=== PATIENT | female | born 1980 | race Caucasian/White ===

== ENCOUNTER 2017-01-20 20:46 | Observation (INO) | payer OTHER ==
[2017-01-20] MEDS ORDERED: SODIUM CHLORIDE 0.9% 1,000 ML IV STA (22:38)
[2017-01-20] MEDS ORDERED: MAG HYDROX/AL HYDROX/SIMETH 30 ML, HYOSCYAMINE ELIXIR 10 ML, CIMETIDINE HCL 300 MG PO STA ×3 (22:58)
--- NOTE | 2017-01-20 23:00 | ED ---
Chest Pain HPI - General Chief Complaint: Chest Pain Stated Complaint: Chest Pain Time Seen by Provider: 01/20/17 22:38 Source: patient, RN notes reviewed, old records reviewed Mode of arrival: wheelchair Limitations: no limitations - History of Present Illness Initial Comments: This is a 36-year-old female with chief complaint of chest pain and arm pain for a few hours after eating dinner. Patient was inserted 7. She states that the pain is currently 5 out of 10. She reports it subsided since being in the emergency department. She denies any fever or chills. She denies any cough or other symptoms. She denies any shortness of breath nausea or vomiting or diaphoresis. Patient states she has a family history of heart disease. She is a nonsmoker. She states she has history of high cholesterol takes medication for. - Related Data Home Medications Medication Instructions Recorded Confirmed metFORMIN HCL 1,000 mg PO DAILY 03/03/14 01/21/17 Insuln Asp Prt/Insulin Aspart 40 unit SQ AC-SUPPER 03/04/14 01/21/17 [NovoLOG MIX 70-30 VIAL] Insuln Asp Prt/Insulin Aspart 80 unit SQ AC-BRKFST 03/04/14 01/21/17 [NovoLOG MIX 70-30 VIAL] Allergies Allergy/AdvReac Type Severity Reaction Status Date / Time aspirin Allergy Rash/Hives Verified 01/20/17 20:59 tramadol HCl [From Ultram] Allergy Unknown Verified 01/20/17 20:59 Review of Systems ROS Statement: Those systems with pertinent positive or pertinent negative responses have been documented in the HPI. ROS Other: All systems not noted in ROS Statement are negative. 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 Patient signed. Any acute distress. Limitations: no limitations General appearance: alert, in no apparent distress Head exam: Present: atraumatic, normocephalic, normal inspection Eye exam: Present: normal appearance, PERRL, EOMI. Absent: scleral icterus, conjunctival injection, periorbital swelling ENT exam: Present: normal exam, mucous membranes moist Neck exam: Present: normal inspection. Absent: tenderness, meningismus, lymphadenopathy Respiratory exam: Present: normal lung sounds bilaterally. Absent: respiratory distress, wheezes, rales, rhonchi, stridor Cardiovascular Exam: Present: regular rate, normal rhythm, normal heart sounds. Absent: systolic murmur, diastolic murmur, rubs, gallop, clicks GI/Abdominal exam: Present: soft, normal bowel sounds. Absent: distended, tenderness, guarding, rebound, rigid Extremities exam: Present: normal inspection, full ROM, normal capillary refill. Absent: tenderness, pedal edema, joint swelling, calf tenderness Back exam: Present: normal inspection Neurological exam: Present: alert, oriented X3, CN II-XII intact Psychiatric exam: Present: normal affect, normal mood Course Vital Signs 01/20/17 01/21/17 01/21/17 20:57 01:12 02:40 Temperature 98.4 F 98.0 F Pulse Rate 94 66 77 Respiratory 18 18 18 Rate Blood Pressure 119/71 114/66 96/54 O2 Sat by Pulse 98 97 99 Oximetry Chest Pain MDM - MDM 36-year-old female chief complaint of chest pain. Patient reports that while in the emergency department throughout her stay her chest pain is subsiding. All of her lab work was reviewed. She does have hypokalemia 2.8. Patient given 40 mg of K-Dur. Also started on IV potassium replacement. Patient will be admitted for observation and repeat her potassium in the morning. Patient agrees to admission. We'll also repeat cardiac enzymes. Patient's chest pain. She reports that she is currently in no pain at this time. Disposition Clinical Impression: Hypokalemia Disposition: ADMITTED IP TO THIS HOSP Condition: Good
[2017-01-20 23:35] LABS: Basophils # (A) 0.1 k/uL (0-0.2); Basophils % (A) 1 %; CH 30.2; CHCM 36.1; Eosinophils # (A) 0.4 k/uL (0-0.7); Eosinophils % (A) 4 %; HCT 41.2 % (34.0-46.0); HDW 2.88; HGB 14.7 gm/dL (11.4-16.0); Luc # (Auto) 0.17; Luc % (Auto) 2; Lymphocytes # (A) 4.1 k/uL (1.0-4.8); Lymphocytes % (A) 36 %; MCH 29.9 pg (25.0-35.0); MCHC 35.6 g/dL (31.0-37.0); MCV 84.1 fL (80.0-100.0); Mean Platelet Volume 8.1; Monocytes # (A) 0.8 k/uL (0-1.0); Monocytes % (A) 7 %; Neutrophils # (A) 5.8 k/uL (1.3-7.7); Neutrophils % (A) 51 %; RBC 4.89 m/uL (3.80-5.40); RDW 13.7 % (11.5-15.5); WBC 11.4 k/uL (3.8-10.6); WBC (Perox) 11.18
[2017-01-20 23:44] LABS: ALT 77 U/L (9-52); AST 33 U/L (14-36); Alkaline Phosphatase 66 U/L (38-126); Anion Gap 12 mmol/L; Blood Urea Nitrogen 10 mg/dL (7-17); Calcium 9.2 mg/dL (8.4-10.2); Carbon Dioxide 22 mmol/L (22-30); Chloride 107 mmol/L (98-107); Glucose 139 mg/dL (74-99); Magnesium 1.6 mg/dL (1.6-2.3); Non-African American GFR(MDRD) >60 (>60 ml/min/1.73 sqM); Sodium 141 mmol/L (137-145); Total Bilirubin 0.4 mg/dL (0.2-1.3); Total Protein 6.8 g/dL (6.3-8.2)
[2017-01-20 23:51] LABS: INR 1.1 (<1.1)
[2017-01-20 23:52] LABS: Partial Thromboplastin Time 24.9 sec (22.0-30.0)
[2017-01-20 23:54] LABS: Potassium 2.8 mmol/L (3.5-5.1)
[2017-01-20 23:58] LABS: Creatine Kinase 30 U/L (30-135)
[2017-01-21] MEDS ORDERED: POTASSIUM CHLORIDE ER 20 MEQ TAB.ER PO STA (00:09)
[2017-01-21 00:12] LABS: Creatine Kinase MB 0.2 ng/mL (0.0-2.4); Troponin I <0.012 ng/mL (0.000-0.034)
--- NOTE | 2017-01-21 00:14 | XR ---
EXAM: XR Chest, 2 Views CLINICAL HISTORY: Chest and left arm pain, dizziness, shortness of breath. TECHNIQUE: Frontal and lateral views of the chest. COMPARISON: 03/03/2014 FINDINGS: Lungs: Unremarkable. No consolidation. Pleural space: Unremarkable. No pneumothorax. Heart: Unremarkable. No cardiomegaly. Mediastinum: Unremarkable. Bones/joints: No acute osseous abnormality. IMPRESSION: No acute cardiopulmonary process.
[2017-01-21] MEDS ORDERED: ONDANSETRON 4 MG/2 ML VIAL IVP PRN (00:42)
[2017-01-21] MEDS ORDERED: NALOXONE 0.4 MG/ML 1 ML VIAL IV PRN (00:42)
[2017-01-21] MEDS ORDERED: IBUPROFEN 400 MG TAB PO PRN (00:42)
[2017-01-21] MEDS ORDERED: KETOROLAC 30 MG/ML 1 ML VIAL IVP PRN (00:42)
[2017-01-21] MEDS ORDERED: ACETAMINOPHEN TAB 325 MG TAB PO PRN (00:44)
[2017-01-21] MEDS ORDERED: MORPHINE SULFATE 4 MG/ML SYRINGE IVP PRN (00:45)
[2017-01-21] MEDS: POTASSIUM CHLORIDE 10 MEQ, LIDOCAINE 2% INJ 10 MG in SODIUM CHLORIDE 0.9% 100 ML IVPB SCH ×3 (01:08→05:18)
[2017-01-21] MEDS: SODIUM CHLORIDE 0.9% 1,000 ML IV SCH ×2 (02:44→10:25)
[2017-01-21 03:22] VITALS: BMI 25.2
[2017-01-21 06:49] LABS: Creatine Kinase 26 U/L (30-135)
[2017-01-21 07:02] LABS: Creatine Kinase MB <0.2 ng/mL (0.0-2.4); Troponin I <0.012 ng/mL (0.000-0.034)
[2017-01-21 07:02] LABS: Glucose,Whole Blood 185 mg/dL (75-99)
[2017-01-21 08:16] VITALS: RESP 16
[2017-01-21 08:23] LABS: Basophils # (A) 0.1 k/uL (0-0.2); Basophils % (A) 1 %; CH 29.9; CHCM 35.9; Eosinophils # (A) 0.3 k/uL (0-0.7); Eosinophils % (A) 4 %; HCT 37.4 % (34.0-46.0); HGB 13.2 gm/dL (11.4-16.0); Luc # (Auto) 0.13; Luc % (Auto) 2; Lymphocytes # (A) 3.2 k/uL (1.0-4.8); Lymphocytes % (A) 42 %; MCH 29.5 pg (25.0-35.0); MCHC 35.2 g/dL (31.0-37.0); MCV 83.7 fL (80.0-100.0); Mean Platelet Volume 8.6; Monocytes # (A) 0.6 k/uL (0-1.0); Monocytes % (A) 7 %; Neutrophils # (A) 3.5 k/uL (1.3-7.7); Neutrophils % (A) 45 %; RBC 4.47 m/uL (3.80-5.40); RDW 13.6 % (11.5-15.5); WBC 7.7 k/uL (3.8-10.6); WBC (Perox) 7.67
[2017-01-21 08:32] LABS: Anion Gap 8 mmol/L; Blood Urea Nitrogen 8 mg/dL (7-17); Calcium 8.4 mg/dL (8.4-10.2); Carbon Dioxide 21 mmol/L (22-30); Chloride 111 mmol/L (98-107); Glucose 199 mg/dL (74-99); Non-African American GFR(MDRD) >60 (>60 ml/min/1.73 sqM); Potassium 3.4 mmol/L (3.5-5.1); Sodium 140 mmol/L (137-145)
[2017-01-21] MEDS: POTASSIUM CHLORIDE ER 20 MEQ TAB.ER PO SCH ×2 (10:22→11:45)
[2017-01-21 11:07] LABS: Creatine Kinase 25 U/L (30-135)
[2017-01-21 11:20] LABS: Creatine Kinase MB <0.2 ng/mL (0.0-2.4); Troponin I <0.012 ng/mL (0.000-0.034)
[2017-01-21 12:03] LABS: Glucose,Whole Blood 207 mg/dL (75-99)
[2017-01-21 12:29] LABS: Hemoglobin A1C 8.2 % (4.2-6.1)
[2017-01-21] MEDS ORDERED: DIPHENOX-ATROP 2.5-0.025 MG 1 EACH TAB PO PRN (13:56)
[2017-01-21] MEDS ORDERED: HYDROcodone/APAP 5-325MG 1 EACH TAB PO PRN (13:56)
[2017-01-21] MEDS ORDERED: CYCLOBENZAPRINE 10 MG TAB PO PRN (13:56)
[2017-01-21] MEDS ORDERED: ALBUTEROL NEBULIZED 2.5 MG/3 ML INHALATION PRN (13:56)
[2017-01-21] MEDS ORDERED: PROCHLORPERAZINE 10 MG TAB PO PRN (13:56)
[2017-01-21] MEDS ORDERED: IBUPROFEN 800 MG TAB PO PRN (13:56)
[2017-01-21] MEDS ORDERED: LORazepam 1 MG TAB PO PRN (13:56)
[2017-01-21] MEDS ORDERED: FENOFIBRATE 160 MG TAB PO SCH (14:00)
[2017-01-21] MEDS ORDERED: ATORVASTATIN 80 MG TAB PO SCH (14:00)
[2017-01-21] MEDS ORDERED: LISINOPRIL 10 MG TAB PO SCH (14:00)
[2017-01-21 16:11] VITALS: BP 101/65; PULSE 86; TEMP 98
[2017-01-21] MEDS ORDERED: INSULN ASP PRT/INSULIN ASPART 100 UNIT/ML 10 ML VIAL SQ SCH (17:30)
--- NOTE | 2017-01-21 20:22 | HP ---
DATE OF ADMISSION: CHIEF COMPLAINT: Atypical chest pain. HISTORY OF PRESENT ILLNESS: This is another admission for this 36-year-old white female. She developed sharp left lateral chest pain and could not move her left arm. She had no diaphoresis, shortness of breath, nausea, etc. She has had no other symptoms of the left arm and there is no radiation into the neck, jaw or back. She is diabetic with poor control. Potassium in the emergency room is low at 2.8. REVIEW OF SYSTEMS: She has had no other complaints or problems. She recently has had trouble getting her diabetes back under good control and she has had some abdominal pain. She is also being treated for vulvar cancer through [facility]. REVIEW OF SYSTEMS: Otherwise unremarkable. She had no neurologic deficits, change in vision or hearing, cough, hemoptysis, fever, chills, shortness of breath, abdominal pain, vomiting, diarrhea, melena, kidney symptoms, hematuria, frequency, urgency, renal failure, etc. Past medical history, family history and personal and social histories are otherwise unremarkable and noncontributory. PHYSICAL EXAMINATION: VITAL SIGNS: Blood pressure 138/86 with a pulse of 83, respirations 20, and she is afebrile. In general, she well-developed, well-nourished and in no acute distress. She is completely comfortable at this time. Skin color is normal. Skin is warm and dry. Lymph nodes are not enlarged. Head, ears, eyes, nose, mouth, and throat were normal. Neck veins not distended. Thyroid was not enlarged. Chest is clear. Cardiac exam is normal. The abdomen is soft, nontender. Extremities are normal. Neurologically, she is intact. IMPRESSION: 1. Atypical chest and left arm pain. 2. Type 2 insulin dependent diabetes mellitus. 3. History of vulvar cancer. 4. Chronic obstructive pulmonary disease. 5. Hypokalemia. PLAN: 1. Bed rest. 2. IV fluids. 3. Serial EKGs and enzymes. 4. Correct hypokalemia.
--- NOTE | 2017-01-21 20:26 | DS ---
DATE OF ADMISSION: 01/21/2017 DATE OF DISCHARGE: 01/21/2017 CHIEF COMPLAINT: Atypical chest pain. HISTORY OF PRESENT ILLNESS AND PHYSICAL EXAMINATION: The details of this lady's history and physical can be found in the initial work-up. LABORATORY STUDIES: While she was hospital she had laboratory studies, the details of which can be found in the laboratory section of her chart. COURSE IN THE HOSPITAL: After admission, she was placed on bed rest, started on intravenous fluids and had serial EKGs and enzymes and they were normal. She had no further problems and it was felt that she could go home. She will follow up in the office. FINAL DIAGNOSES: 1. Atypical chest pain. 2. Type 2 diabetes. 3. Vulvar cancer. 4. Chronic obstructive pulmonary disease. OPERATIONS: None. CONSULTATIONS: None. She is improved.
[2017-01-21] MEDS ORDERED: AMITRIPTYLINE HCL 25 MG TAB PO SCH (21:00)
[2017-01-22] MEDS ORDERED: PANTOPRAZOLE 40 MG TABLET PO SCH (07:30)
[2017-01-22] MEDS ORDERED: INSULN ASP PRT/INSULIN ASPART 100 UNIT/ML 10 ML VIAL SQ SCH (07:30)
== END 2017-01-21 16:24 | disposition home or self-care (01) ==
LOC: EC 20:46 → 3OBS 01-21 02:02
PROVIDERS: ADMIT Family Medicine; ATTEND Family Medicine
DX: R07.89 Other chest pain (principal); M79.602 Pain in left arm; E11.65 Type 2 diabetes mellitus with hyperglycemia; C51.9 Malignant neoplasm of vulva, unspecified; J44.9 Chronic obstructive pulmonary disease, unspecified; E87.6 Hypokalemia; Z82.49 Family history of ischemic heart disease and other diseases of the circulatory system; Z79.84 Long term (current) use of oral hypoglycemic drugs; Z79.4 Long term (current) use of insulin; Z88.6 Allergy status to analgesic agent; Z88.5 Allergy status to narcotic agent; F17.200 Nicotine dependence, unspecified, uncomplicated
CPT/HCPCS: 96361; 96365; 99285; 36415; 93005; 85379; 83880; 80053; 80048; 83036; 82550 ×2; 82553 ×2; 83735; 84484 ×2; 85025 ×2; 85610; 85730; 71020; G0378; J2001; J3480; J1885

== ENCOUNTER → 2017-01-29 | Outpatient (CLI) | payer OTHER ==
[2017-01-29 11:00] LABS: Blood Urea Nitrogen 7 mg/dL (7-17); Non-African American GFR(MDRD) >60 (>60 ml/min/1.73 sqM)
--- NOTE | 2017-01-29 14:41 | CT ---
EXAMINATION TYPE: CT abdomen pelvis w con DATE OF EXAM: 01/29/2017 12:22 PM HISTORY: Patient complains of generalized abdominal pain, nausea, vomiting, and loss of appetite. Theron conrad has a history of vulva CA. CT DLP: 1385mGycm Automated Exposure Control for Dose Reduction was Utilized. CONTRAST: CT scan of the abdomen and pelvis is performed with IV Contrast, patient injected with 100 mL of Omni paque 300. COMPARISON: CT abdomen and pelvis July 31, 2015. Complete abdominal ultrasound June 06, 2016 . FINDINGS: LUNG BASES: Dependent atelectatic change is present bilaterally. LIVER/GB: Liver is diffusely low dense consistent with fatty infiltration as seen on prior abdominal ultrasound. PANCREAS: No significant abnormality is seen. SPLEEN: No significant abnormality is seen. ADRENALS: No significant abnormality is seen. KIDNEYS: There are a few simple appearing small cysts scattered throughout the right kidney. There is 2 cm renal calculus upper pole level left kidney on axial image 21 now identified. BOWEL: The oral contrast reaches level of sigmoid colon. There is no suspicious small or large bowel dilatation. Normal contrast-filled appendix is seen inferiorly from the cecum. UTERUS/ADNEXA: Uterus is surgically absent. Slightly heterogeneous cervical remnant is redemonstrated , correlation with direct visualization advised given patient's history of vaginal or vulvar cancer. Region of the labia is unremarkable. Remnant left ovary is somewhat prominent in size on axial image 69. Remnant right ovary is not identified. Consider pelvic ultrasound correlation. LYMPH NODES: No greater than 1cm abdominal or pelvic lymph nodes are appreciated. OSSEOUS STRUCTURES: Limbus vertebra anterior superior L4 endplate is noted. OTHER: There is mild mixed plaque in the abdominal aorta. Small fat-containing umbilical hernia is re demonstrated. IMPRESSION: No bowel obstruction is seen. No significant new or acute finding is seen to account for patient's clinical symptoms. Note is made of new 2 mm nonobstructing left-sided renal calculus. Atte ntion to uterus/adnexa section as detailed above.
== END | disposition home or self-care (01) ==
LOC: RADCTMAIN 10:30
PROVIDERS: ATTEND Family Medicine
DX: N20.0 Calculus of kidney (principal)
CPT/HCPCS: 82565; 84520; 74177; 36415; Q9967

== ENCOUNTER → 2017-01-30 | Outpatient (CLI) | payer OTHER ==
--- NOTE | 2017-01-30 13:02 | ECHOS ---
DATE OF SERVICE: 01/30/2017 AGE: 36Y SEX: F HT: 62 WT: 138 lbs. Protocol Javier: X Others: Stress Echo Stage: III Dur. of Exercise: 9 minutes *Heart Rate Blood Pressure *Rest: 82 Rest: 128/56 * *Max. Achieved: 153 Maximum BP: 150/69 85% PMHR: 157 100% PMHR: 185 *METS: 10.1 INDICATIONS: Chest pain. MEDICATIONS: Lasix, potassium, [place], Motrin, Cipro, NovoLog, metformin. Mrs. Osorio is a 36-year-old female being evaluated for symptoms of chest pain and shortness of breath. Baseline EKG showed sinus rhythm with normal TX interval and QRS duration. Blood pressure at rest is 128/56 with pulse rate of 82. Patient walked on the Javier protocol for 9 minutes, achieving a maximum heart rate of 153 with a blood pressure of 150/69. EKGs taken during and after the exercise did not reveal any changes to suggest ischemia. ECHO DATA: Baseline echo images show normal wall motion and thickening. Exercise echo images showed augmentation of the wall motion and thickening in all the segments. FINAL IMPRESSION: 1. Negative stress test. 2. Negative stress echo.
== END | disposition home or self-care (01) ==
LOC: RADNMMAIN 09:43
PROVIDERS: ATTEND Family Medicine
DX: R07.9 Chest pain, unspecified (principal); Z88.6 Allergy status to analgesic agent; Z91.048 Other nonmedicinal substance allergy status
CPT/HCPCS: 93017; 93350

== ENCOUNTER 2017-02-24 20:22 | Emergency (ER) | payer OTHER ==
[2017-02-24 20:26] VITALS: BP 122/71; PULSE 87; RESP 16; TEMP 97.4
[2017-02-24] MEDS ORDERED: DIAZEPAM 5 MG/ML 2 ML SYRINGE IM ONE (21:07)
--- NOTE | 2017-02-24 21:08 | ED ---
Extremity Problem HPI - General Chief complaint: Extremity Problem,Nontraumatic Stated complaint: Right arm numbness Time Seen by Provider: 02/24/17 20:52 Source: patient Mode of arrival: ambulatory Limitations: no limitations - History of Present Illness Initial comments: Patient is a 36-year-old male presenting to the emergency department with complaints of right hand numbness and cramping with occasional twitching. Onset of symptoms approximately one hour prior to arrival. Patient states she was waiting for dinner to get ready when symptoms started. Patient denies similar symptoms. Patient denies recent illness, fevers, nausea, vomiting, shortness of breath, chest pain, or abdominal pain. Onset/Timin -: hour(s) Location: right (Hand) History of Same: No Radiation: none Severity scale (1-10): 2 Quality: aching Consistency: constant Improves with: nothing Worsens with: nothing Associated Symptoms: denies other symptoms - Related Data Home Medications Medication Instructions Recorded Confirmed metFORMIN HCL 1,000 mg PO DAILY 03/03/14 01/21/17 Insuln Asp Prt/Insulin Aspart 40 unit SQ AC-SUPPER 03/04/14 01/21/17 [NovoLOG MIX 70-30 VIAL] Insuln Asp Prt/Insulin Aspart 80 unit SQ AC-BRKFST 03/04/14 01/21/17 [NovoLOG MIX 70-30 VIAL] Albuterol Inhaler [Ventolin Hfa 2 puff INHALATION RT-QID PRN 01/21/17 01/21/17 Inhaler] Amitriptyline HCl 25 mg PO HS 01/21/17 01/21/17 Atorvastatin [Lipitor] 80 mg PO DAILY 01/21/17 01/21/17 Benazepril [Lotensin] 10 mg PO DAILY 01/21/17 01/21/17 Cyclobenzaprine [Flexeril] 10 mg PO TID PRN 01/21/17 01/21/17 Diphenox-Atrop 2.5-0.025 mg 1 - 2 tab PO QID PRN 01/21/17 01/21/17 [Lomotil] Ergocalciferol [Vitamin D2] 50,000 unit PO TH 01/21/17 01/21/17 Fenofibrate 160 mg PO DAILY 01/21/17 01/21/17 HYDROcodone/APAP 5-325MG [[place] 1 tab PO Q4HR PRN 01/21/17 01/21/17 5-325] Ibuprofen [Motrin] 800 mg PO Q6HR PRN 01/21/17 01/21/17 LORazepam [Ativan] 1 mg PO TID PRN 01/21/17 01/21/17 Omeprazole [PriLOSEC] 20 mg PO DAILY 01/21/17 01/21/17 Prochlorperazine [Compazine] 10 mg PO Q6H PRN 01/21/17 01/21/17 Allergies Allergy/AdvReac Type Severity Reaction Status Date / Time aspirin Allergy Rash/Hives Verified 02/24/17 20:26 tramadol HCl [From Ultram] Allergy Unknown Verified 02/24/17 20:26 Mushroom AdvReac Vomiting Verified 02/24/17 20:26 Review of Systems ROS Statement: Those systems with pertinent positive or pertinent negative responses have been documented in the HPI. ROS Other: All systems not noted in ROS Statement are negative. 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 Absent: tenderness, lymphadenopathy Respiratory exam: Present: normal lung sounds bilaterally. Absent: respiratory distress, wheezes, rales, rhonchi, stridor Cardiovascular Exam: Present: regular rate, normal rhythm, normal heart sounds. Absent: systolic murmur, diastolic murmur, rubs, gallop, clicks GI/Abdominal exam: Present: soft, normal bowel sounds. Absent: distended, tenderness, guarding, rebound, rigid Right Forearm Wrist exam: Present: normal inspection, full ROM. Absent: tenderness, swelling Hand Wrist exam: Present: normal inspection, other (Patient is able to open and close right hand and move all fingers but some twitching is noted especially in right thumb.) Neuro motor exam: Present: wrist extension intact, thumb opposition intact, thumb IP flexion intact, thumb adduction intact, fingers 2-5 abduction intact Neurosensory exam: Present: 2-point discrimination, radial nerve intact, ulnar nerve intact, median nerve intact Vascular: Present: normal capillary refill, radial pulse, brachial pulse, ulnar pulse. Absent: vascular compromise Neurological exam: Present: alert, oriented X3, normal gait, other (No focal deficits noted.). Absent: motor sensory deficit Psychiatric exam: Present: normal affect, normal mood Skin exam: Present: warm, dry, intact, normal color Course Vital Signs 02/24/17 20:24 Temperature 97.4 F L Pulse Rate 87 Respiratory 16 Rate Blood Pressure 122/71 O2 Sat by Pulse 98 Oximetry Medical Decision Making - Medical Decision Making Muscle spasm of right hand. Patient given anti-spasmodic. Patient instructed to hydrate. Patient instructed to follow-up with primary care physician. Patient agrees with treatment plan. Discharge instructions and return parameters reviewed. Disposition Clinical Impression: Muscle spasm Disposition: HOME SELF-CARE Condition: Good Instructions: Muscle Spasm (ED) Additional Instructions: Encourage fluid intake to 6-8 glasses of water a day. Please return to the emergency department if symptoms do not improve or get worse. Follow-up with primary care physician as directed. Referrals: Manny Wallace MD [Primary Care Provider] - 1-2 days Time of Disposition: 21:08
[2017-02-24] MEDS: DIAZEPAM 2 MG TAB PO STA ×2 (21:16→21:17)
== END 2017-02-24 21:17 | disposition home or self-care (01) ==
LOC: EC 20:22
DX: M62.838 Other muscle spasm (principal); E11.9 Type 2 diabetes mellitus without complications; F17.200 Nicotine dependence, unspecified, uncomplicated; Z85.89 Personal history of malignant neoplasm of other organs and systems; Z79.4 Long term (current) use of insulin; Z79.899 Other long term (current) drug therapy; Z88.6 Allergy status to analgesic agent; Z91.048 Other nonmedicinal substance allergy status
CPT/HCPCS: 99283; 96372; J3360

== ENCOUNTER → 2017-03-06 | Outpatient (CLI) | payer OTHER ==
[2017-03-06 09:29] LABS: Blood Urea Nitrogen 9 mg/dL (7-17); Non-African American GFR(MDRD) >60 (>60 ml/min/1.73 sqM)
--- NOTE | 2017-03-06 09:40 | US ---
EXAMINATION TYPE: US carotid duplex BILAT DATE OF EXAM: 03/06/2017 COMPARISON: Previous study dated 01/28/2015 CLINICAL HISTORY: R55 syncope/R53.1 weakness. EXAM MEASUREMENTS: RIGHT: Peak Systolic Velocity (PSV) cm/sec ----- Right CCA: 95.4 ----- Right ICA: 91.6 ----- Right ECA: 62.2 ICA/CCA ratio: 1.0 RIGHT: End Diastole cm/sec ----- Right CCA: 35.8 ----- Right ICA: 47.5 ----- Right ECA: 12.7 LEFT: Peak Systolic Velocity (PSV) cm/sec ----- Left CCA: 96.0 ----- Left ICA: 99.3 ----- Left ECA: 110.3 ICA/CCA ratio: 1.0 LEFT: End Diastole cm/sec ----- Left CCA: 36.5 ----- Left ICA: 51.9 ----- Left ECA: 27.5 VERTEBRALS (direction of flow): Right Vertebral: Antegrade Left Vertebral: Antegrade 36 year old patient, no evident plaque, no elevated velocities. IMPRESSION: I DO NOT SEE EVIDENCE OF A HEMODYNAMICALLY SIGNIFICANT STENOSIS IN EITHER CAROTID SYSTEM. Criteria for Assigning % of Stenosis / Diameter reduction (Estimation based on the indirect measurements of the internal carotid artery velocities (ICA PSV). 1. Normal (no stenosis)=ICA PSV < 125 cm/s: ratio < 2.0: ICA EDV<40 cm/s. 2. Less than 50% stenosis=ICA PSV < 125 cm/s: ratio < 2.0: ICA EDV<40 cm/s. 3. 50 to 69% stenosis=ICA PSV of 125 to 230 cm/s: ration 2.0 ? 4.0: ICA EDV 40-100 cm/s. 4. Greater than 70% stenosis to near occlusion= ICA PSV > 230 cm/s: ratio > 4.0: ICA EDV > 100 cm/s. 5. Near occlusion= ICA PSV velocities may be low or undetectable: variable ratio and ICA EDV. 6. Total occlusion=unable to detect flow.
--- NOTE | 2017-03-06 10:15 | CT ---
EXAMINATION TYPE: CT brain wo/w con DATE OF EXAM: 03/06/2017 COMPARISON: Previous study dated 01/28/2015. HISTORY: Weakness and Syncope CT DLP: 2035.8 mGycm Automated exposure control for dose reduction was used. TECHNIQUE: Helical acquisition through the brain was obtained with and without intravenous administra tion of 100 cc of Omnipaque 300. The data was reformatted in axial, coronal and sagittal projections. FINDINGS: Central structures are midline. There is no evidence of hydrocephalus. No acute focal lesion, mass ef fect or midline shift is seen. I do not see evidence of intracranial blood. The orbits are normal. Following intravenous administration of contrast, I do not see evidence of abnormal enhancement. Visualized portions of the paranasal sinuses and mastoids are clear. IMPRESSION: NORMAL CT SCAN OF THE BRAIN WITH AND WITHOUT INTRAVENOUS CONTRAST.
== END | disposition home or self-care (01) ==
LOC: RADUSMAIN 08:50
PROVIDERS: ATTEND Family Medicine
DX: R53.1 Weakness (principal); R55 Syncope and collapse
CPT/HCPCS: 93225; 93226; 82565; 84520; 93880; 70470; 36415; Q9967

== ENCOUNTER 2017-04-18 15:18 | Inpatient (IN) | payer OTHER ==
[2017-04-18] MEDS ORDERED: PIPERACILLIN-TAZOBACTAM 3.375 GM in DEXTROSE/WATER 1 50ML.BAG IVPB STA (15:41)
[2017-04-18] MEDS ORDERED: SODIUM CHLORIDE 0.9% 1,000 ML IV STA ×2 (15:41)
[2017-04-18] MEDS ORDERED: ACETAMINOPHEN TAB 500 MG TAB PO STA (15:41)
--- NOTE | 2017-04-18 16:33 | XR ---
EXAMINATION TYPE: XR chest 2V DATE OF EXAM: 04/18/2017 COMPARISON: 01/20/2017 HISTORY: Fever TECHNIQUE: Frontal and lateral views of the chest are obtained. FINDINGS: Heart and mediastinum are normal. Lungs are clear. Diaphragm is normal. Bony thorax appear s normal. IMPRESSION: Normal chest. No change.
[2017-04-18 16:48] LABS: Basophils # (A) 0.1 k/uL (0-0.2); Basophils % (A) 0 %; CH 30.9; CHCM 36.3; Eosinophils # (A) 0.1 k/uL (0-0.7); Eosinophils % (A) 1 %; HCT 40.6 % (34.0-46.0); HDW 2.79; HGB 14.2 gm/dL (11.4-16.0); Luc # (Auto) 0.14; Luc % (Auto) 1; Lymphocytes # (A) 1.7 k/uL (1.0-4.8); Lymphocytes % (A) 9 %; MCH 29.9 pg (25.0-35.0); MCHC 34.9 g/dL (31.0-37.0); MCV 85.5 fL (80.0-100.0); Mean Platelet Volume 8.6; Monocytes # (A) 1.2 k/uL (0-1.0); Monocytes % (A) 6 %; Neutrophils # (A) 16.4 k/uL (1.3-7.7); Neutrophils % (A) 84 %; RBC 4.75 m/uL (3.80-5.40); RDW 14.3 % (11.5-15.5); WBC 19.6 k/uL (3.8-10.6); WBC (Perox) 19.92
[2017-04-18 16:53] LABS: Appearance,Urine Clear (Clear); Bacteria,Urine Few /hpf; Bilirubin,Urine Negative (Negative); Glucose,Urine (UA) Negative (Negative); Ketones,Urine Negative (Negative); Leukocyte Esterase,Urine Moderate (Negative); Mucus,Urine Rare /hpf; Nitrite,Urine Negative (Negative); Particle Count 2753; Protein,Urine Trace (Negative); RBC,Urine 1 /hpf (0-5); Specific Gravity,Urine 1.006 (1.001-1.035); Squamous Epithelial Cell,Urine 2 /hpf (0-4); UA Billing (MACRO vs. MICRO) MICRO; Urobilinogen,Urine <2.0 mg/dL (<2.0); WBC,Urine 33 /hpf (0-5)
[2017-04-18 17:05] LABS: ALT 20 U/L (9-52); AST 16 U/L (14-36); Alkaline Phosphatase 56 U/L (38-126); Anion Gap 13 mmol/L; Blood Urea Nitrogen 7 mg/dL (7-17); Calcium 9.6 mg/dL (8.4-10.2); Carbon Dioxide 19 mmol/L (22-30); Chloride 107 mmol/L (98-107); Glucose 153 mg/dL (74-99); Non-African American GFR(MDRD) >60 (>60 ml/min/1.73 sqM); Sodium 139 mmol/L (137-145); Total Bilirubin 0.7 mg/dL (0.2-1.3); Total Protein 6.9 g/dL (6.3-8.2)
[2017-04-18 17:10] LABS: Potassium 2.7 mmol/L (3.5-5.1)
[2017-04-18] MEDS ORDERED: RX INFO: IV CONTRAST WAS GIVEN 1 EACH MISC MISCELLANE PRN (17:22)
--- NOTE | 2017-04-18 17:29 | ED ---
Fever HPI - General Chief Complaint: Fever Stated Complaint: Back Pain Time Seen by Provider: 04/18/17 15:31 Source: patient Mode of arrival: ambulatory Limitations: no limitations - History of Present Illness Initial Comments: 36 years old female presents with high fever she had a fever off one or 2.3 at home, she was fine until 9 AM today at 9 AM she felt that she is kind of ", she has a high fever or lower back pain and also complaining about the pain she also has a UTI-like symptoms she noticed frequency urgency dysuria she denies any headache no neck stiffness no chest pain she has not been coughing does complain about abdominal pain and flank pain bilaterally and she has a UTI like symptoms. Review of system is otherwise unremarkable - Related Data Home Medications Medication Instructions Recorded Confirmed Albuterol Inhaler [Ventolin Hfa 2 puff INHALATION RT-QID PRN 01/21/17 04/18/17 Inhaler] Atorvastatin [Lipitor] 80 mg PO DAILY 01/21/17 04/18/17 Benazepril [Lotensin] 10 mg PO DAILY 01/21/17 04/18/17 Cyclobenzaprine [Flexeril] 10 mg PO TID PRN 01/21/17 04/18/17 Diphenox-Atrop 2.5-0.025 mg 1 tab PO QID PRN 01/21/17 04/18/17 [Lomotil] Ergocalciferol [Vitamin D2] 50,000 unit PO Q28D 01/21/17 04/18/17 Fenofibrate 160 mg PO DAILY 01/21/17 04/18/17 HYDROcodone/APAP 5-325MG [[place] 1 tab PO BID PRN 01/21/17 04/18/17 5-325] LORazepam [Ativan] 1 mg PO TID PRN 01/21/17 04/18/17 Omeprazole [PriLOSEC] 20 mg PO DAILY PRN 01/21/17 04/18/17 Ezetimibe [Zetia] 10 mg PO DAILY 04/18/17 04/18/17 Furosemide [Lasix] 10 mg PO DAILY 04/18/17 04/18/17 Insulin Aspart [NovoLOG Flexpen] See Protocol SQ AC-TID 04/18/17 04/18/17 Potassium Chloride ER [K-Dur 20] 20 meq PO QID 04/18/17 04/18/17 Tamoxifen Citrate 20 mg PO DAILY 04/18/17 04/18/17 Allergies Allergy/AdvReac Type Severity Reaction Status Date / Time aspirin Allergy Rash/Hives Verified 02/24/17 20:26 Mushroom AdvReac Vomiting Verified 02/24/17 20:26 tramadol HCl [From Ultram] AdvReac Nausea & Verified 04/18/17 16:19 Vomiting Review of Systems ROS Statement: Those systems with pertinent positive or pertinent negative responses have been documented in the HPI. ROS Other: All systems not noted in ROS Statement are negative. 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 Looks tired and pale Skin: Skin is warm and dry and no rashes or lesions are noted. Eye: Pupils are equal, round and reactive to light, extra-ocular movements are intact; there is normal conjunctiva bilaterally. Ears, nose, mouth and throat: There are moist mucous membranes and no oral lesions. Neck: The neck is supple, there is no tenderness signs of meningitis Cardiovascular: There is a regular rate and rhythm. No murmur, rub or gallop is appreciated. Some tachycardia Respiratory: To auscultation bilateral, no wheezing no rhonchi no distress respiratory stewart noticed Gastrointestinal: Mildly diffusely tender all over the abdomen positive bowel sounds no guarding no rebounds Back: There is tenderness over the both flanks Musculoskeletal: Normal ROM, no tenderness, There is no pedal edema. There is no calf tenderness or swelling. No cords were appreciated. Neurological: CN II-XII intact, Cranial nerves III through XII are intact. There are no obvious motor or sensory deficits. Coordination appears grossly intact. Speech is normal. Psychiatric: Cooperative, appropriate mood & affect, normal judgment. Limitations: no limitations Course Vital Signs 04/18/17 04/18/17 04/18/17 15:25 16:25 16:48 Temperature 101.8 F H 100.0 F H Pulse Rate 120 H 113 H Respiratory 20 22 20 Rate Blood Pressure 134/78 119/71 O2 Sat by Pulse 99 99 Oximetry 04/18/17 04/18/17 04/18/17 16:58 17:36 18:59 Temperature 101.7 F H 100.9 F H 99 F Pulse Rate 116 H 104 H Respiratory 22 22 Rate Blood Pressure 119/71 101/62 O2 Sat by Pulse 96 97 Oximetry Medical Decision Making - Lab Data Result diagrams: 04/18/17 16:11 04/18/17 16:11 Lab Results 04/18/17 04/18/17 04/18/17 Range/Units 16:11 16:11 16:11 WBC 19.6 H (3.8-10.6) k/uL RBC 4.75 (3.80-5.40) m/uL Hgb 14.2 (11.4-16.0) gm/dL Hct 40.6 (34.0-46.0) % MCV 85.5 (80.0-100.0) fL MCH 29.9 (25.0-35.0) pg MCHC 34.9 (31.0-37.0) g/dL RDW 14.3 (11.5-15.5) % Plt Count 260 (150-450) k/uL Neutrophils % 84 % Lymphocytes % 9 % Monocytes % 6 % Eosinophils % 1 % Basophils % 0 % Neutrophils # 16.4 H (1.3-7.7) k/uL Lymphocytes # 1.7 (1.0-4.8) k/uL Monocytes # 1.2 H (0-1.0) k/uL Eosinophils # 0.1 (0-0.7) k/uL Basophils # 0.1 (0-0.2) k/uL Sodium 139 (137-145) mmol/L Potassium 2.7 L* (3.5-5.1) mmol/L Chloride 107 (98-107) mmol/L Carbon Dioxide 19 L (22-30) mmol/L Anion Gap 13 mmol/L BUN 7 (7-17) mg/dL Creatinine 0.55 (0.52-1.04) mg/dL Est GFR (MDRD) Af Amer >60 (>60 ml/min/1.73 sqM) Est GFR (MDRD) Non-Af >60 (>60 ml/min/1.73 sqM) Glucose 153 H (74-99) mg/dL Plasma Lactic Acid [place] 1.4 (0.7-2.0) mmol/L Calcium 9.6 (8.4-10.2) mg/dL Total Bilirubin 0.7 (0.2-1.3) mg/dL AST 16 (14-36) U/L ALT 20 (9-52) U/L Alkaline Phosphatase 56 (38-126) U/L Total Protein 6.9 (6.3-8.2) g/dL Albumin 4.2 (3.5-5.0) g/dL Urine Color Urine Appearance (Clear) Urine pH (5.0-8.0) Ur Specific [place] (1.001-1.035) Urine Protein (Negative) Urine Glucose (UA) (Negative) Urine Ketones (Negative) Urine Blood (Negative) Urine Nitrite (Negative) Urine Bilirubin (Negative) Urine Urobilinogen (<2.0) mg/dL Ur Leukocyte Esterase (Negative) Urine RBC (0-5) /hpf Urine WBC (0-5) /hpf Ur Squamous Epith Cells (0-4) /hpf Urine Bacteria (None) /hpf Urine Mucus (None) /hpf 04/18/17 Range/Units 16:11 WBC (3.8-10.6) k/uL RBC (3.80-5.40) m/uL Hgb (11.4-16.0) gm/dL Hct (34.0-46.0) % MCV (80.0-100.0) fL MCH (25.0-35.0) pg MCHC (31.0-37.0) g/dL RDW (11.5-15.5) % Plt Count (150-450) k/uL Neutrophils % % Lymphocytes % % Monocytes % % Eosinophils % % Basophils % % Neutrophils # (1.3-7.7) k/uL Lymphocytes # (1.0-4.8) k/uL Monocytes # (0-1.0) k/uL Eosinophils # (0-0.7) k/uL Basophils # (0-0.2) k/uL Sodium (137-145) mmol/L Potassium (3.5-5.1) mmol/L Chloride (98-107) mmol/L Carbon Dioxide (22-30) mmol/L Anion Gap mmol/L BUN (7-17) mg/dL Creatinine (0.52-1.04) mg/dL Est GFR (MDRD) Af Amer (>60 ml/min/1.73 sqM) Est GFR (MDRD) Non-Af (>60 ml/min/1.73 sqM) Glucose (74-99) mg/dL Plasma Lactic Acid [place] (0.7-2.0) mmol/L Calcium (8.4-10.2) mg/dL Total Bilirubin (0.2-1.3) mg/dL AST (14-36) U/L ALT (9-52) U/L Alkaline Phosphatase (38-126) U/L Total Protein (6.3-8.2) g/dL Albumin (3.5-5.0) g/dL Urine Color Light Yellow Urine Appearance Clear (Clear) Urine pH 7.0 (5.0-8.0) Ur Specific [place] 1.006 (1.001-1.035) Urine Protein Trace H (Negative) Urine Glucose (UA) Negative (Negative) Urine Ketones Negative (Negative) Urine Blood Negative (Negative) Urine Nitrite Negative (Negative) Urine Bilirubin Negative (Negative) Urine Urobilinogen <2.0 (<2.0) mg/dL Ur Leukocyte Esterase Moderate H (Negative) Urine RBC 1 (0-5) /hpf Urine WBC 33 H (0-5) /hpf Ur Squamous Epith Cells 2 (0-4) /hpf Urine Bacteria Few H (None) /hpf Urine Mucus Rare H (None) /hpf Critical Care Time Total Critical Care Time: 30 Critical Care Time: She came in now with a high fever and tachycardia and abdominal pain and the flank pain temp was 102 white count is 20,000 with a significant left shift urine is positive she also has a low potassium was 2.9 and she is she has a metabolic acidosis CO2 is 19 my did speak to the Dr. Wallace she will definitely need admission she had aggressive fluid resuscitation and antibiotics were given she was given Zosyn. Hyperkalemia was flexed and fluids will help with the metabolic acidosis suprapubic abdominal pain is concerned and she has a history of for cancer. All systems are decreased in the pelvis and she is tender Disposition Clinical Impression: Fever, Hypokalemia, Metabolic acidosis, Abdominal pain, Pyelonephritis Disposition: ADMITTED IP TO THIS HOSP Condition: Good Referrals: Manny Wallace MD [Primary Care Provider] - 1-2 days
[2017-04-18] MEDS ORDERED: POTASSIUM CHLORIDE ORAL LIQUID 40 MEQ/30 ML CUP PO ONE ×2 (17:30→22:37)
[2017-04-18] MEDS ORDERED: IBUPROFEN 200 MG TAB PO STA (17:43)
--- NOTE | 2017-04-18 18:14 | CT ---
EXAMINATION TYPE: CT abdomen pelvis w con DATE OF EXAM: 04/18/2017 COMPARISON: 01/29/2017 HISTORY: LOWER BACK PAIN AND FEVER. CT DLP: 1106 mGycm Automated exposure control for dose reduction was used. TECHNIQUE: Helical acquisition of images was performed from the lung bases through the pelvis. CONTRAST: Performed without Oral Contrast and with IV Contrast, patient injected with 100 mL of Omnipaque 300. FINDINGS: There is mild subsegmental atelectasis at the lung bases. There is no pleural effusion. Heart size is normal. Liver spleen pancreas gallbladder appear normal. Bile ducts are nondilated. There is no adrenal mass. There are 1 cm cortical cysts in the right kidney. There is inhomogeneous enhancement of the lateral cortex of the left kidney. There is suggestion of v andrew minimal left-sided perinephric edema. There is no retroperitoneal adenopathy there is no ascites. Appendix appears normal. Bladder distends smoothly. I see no pelvic mass. There is a 1 cm cyst on the left ovary. The bony structures appear n ormal.: IMPRESSION: THERE IS ABNORMAL BULGING AND ENHANCEMENT OF THE LATERAL LEFT KIDNEY CONSISTENT WITH ACUTE PYELONEPHR ITIS THAT IS NEW COMPARED TO OLD EXAM. MILD LEFT-SIDED PERINEPHRIC EDEMA. NO EVIDENCE OF RENAL OBSTRU CTION. NO ABSCESS. NORMAL APPENDIX. MINIMAL SUBSEGMENTAL ATELECTASIS AT THE LUNG BASES.
[2017-04-18] MEDS ORDERED: NALOXONE 0.4 MG/ML 1 ML VIAL IV PRN (19:14)
[2017-04-18] MEDS ORDERED: ONDANSETRON 4 MG/2 ML VIAL IVP PRN (19:14)
[2017-04-18] MEDS ORDERED: MORPHINE SULFATE 4 MG/ML SYRINGE IV PRN (19:14)
[2017-04-18] MEDS ORDERED: CYCLOBENZAPRINE 10 MG TAB PO PRN (19:21)
[2017-04-18] MEDS ORDERED: ALBUTEROL NEBULIZED 2.5 MG/3 ML INHALATION PRN (19:21)
[2017-04-18] MEDS ORDERED: DIPHENOX-ATROP 2.5-0.025 MG 1 EACH TAB PO PRN (19:21)
[2017-04-18] MEDS ORDERED: LORazepam 1 MG TAB PO PRN (19:21)
[2017-04-18] MEDS ORDERED: PANTOPRAZOLE 40 MG TABLET PO PRN (19:21)
[2017-04-18] MEDS: HYDROcodone/APAP 5-325MG 1 EACH TAB PO PRN (20:54)
[2017-04-18] MEDS: FENOFIBRATE 160 MG TAB PO SCH (20:54)
[2017-04-18 21:40] LABS: Glucose,Whole Blood 125 mg/dL (75-99)
[2017-04-18] MEDS ORDERED: POTASSIUM CHLORIDE ER 20 MEQ TAB.ER PO SCH (22:00)
[2017-04-19] MEDS ORDERED: POTASSIUM CHLORIDE ORAL LIQUID 40 MEQ/30 ML CUP PO ONE (00:19)
[2017-04-19] MEDS: ACETAMINOPHEN TAB 325 MG TAB PO PRN ×3 (03:17→21:05)
[2017-04-19 07:28] LABS: Glucose,Whole Blood 235 mg/dL (75-99)
[2017-04-19] MEDS: FUROSEMIDE 10 MG TAB PO SCH (07:41)
[2017-04-19] MEDS: LISINOPRIL 10 MG TAB PO SCH (07:41)
[2017-04-19] MEDS: cefTRIAXone 2,000 MG in SODIUM CHLORIDE 0.9% 100 ML IVPB SCH (07:41)
[2017-04-19] MEDS: INSULN ASP PRT/INSULIN ASPART 100 UNIT/ML 10 ML VIAL SQ SCH ×2 (07:41→17:42)
[2017-04-19] MEDS: EZETIMIBE 10 MG TAB PO SCH (07:41)
[2017-04-19] MEDS: POTASSIUM CHLORIDE ORAL LIQUID 40 MEQ/30 ML CUP PO SCH ×4 (07:41→21:01)
[2017-04-19] MEDS: HYDROcodone/APAP 5-325MG 1 EACH TAB PO PRN (07:41)
[2017-04-19] MEDS: ATORVASTATIN 80 MG TAB PO SCH (07:41)
[2017-04-19] MEDS: TAMOXIFEN 10 MG TAB PO SCH (08:29)
[2017-04-19 08:52] LABS: Basophils # (A) 0.1 k/uL (0-0.2); Basophils % (A) 0 %; CH 29.8; CHCM 34.7; Eosinophils # (A) 0.1 k/uL (0-0.7); Eosinophils % (A) 0 %; HCT 38.2 % (34.0-46.0); HGB 13.2 gm/dL (11.4-16.0); Luc # (Auto) 0.16; Luc % (Auto) 1; Lymphocytes # (A) 1.2 k/uL (1.0-4.8); Lymphocytes % (A) 6 %; MCH 29.9 pg (25.0-35.0); MCHC 34.7 g/dL (31.0-37.0); MCV 86.1 fL (80.0-100.0); Mean Platelet Volume 8.1; Monocytes # (A) 1.5 k/uL (0-1.0); Monocytes % (A) 7 %; Neutrophils # (A) 18.5 k/uL (1.3-7.7); Neutrophils % (A) 86 %; RBC 4.43 m/uL (3.80-5.40); RDW 13.2 % (11.5-15.5); WBC 21.4 k/uL (3.8-10.6); WBC (Perox) 21.52
[2017-04-19] MEDS ORDERED: FENOFIBRATE 160 MG TAB PO SCH (09:00)
[2017-04-19 09:29] LABS: ALT 24 U/L (9-52); AST 12 U/L (14-36); Alkaline Phosphatase 58 U/L (38-126); Anion Gap 9 mmol/L; Blood Urea Nitrogen 5 mg/dL (7-17); Calcium 8.9 mg/dL (8.4-10.2); Carbon Dioxide 20 mmol/L (22-30); Chloride 111 mmol/L (98-107); Glucose 177 mg/dL (74-99); Non-African American GFR(MDRD) >60 (>60 ml/min/1.73 sqM); Sodium 140 mmol/L (137-145); Total Bilirubin 0.5 mg/dL (0.2-1.3); Total Protein 5.8 g/dL (6.3-8.2)
[2017-04-19] MEDS: HYDROmorphone 1 MG/ML 1 ML SYRINGE IVP PRN ×3 (11:24→21:00)
[2017-04-19 12:15] LABS: Glucose,Whole Blood 70 mg/dL (75-99)
--- NOTE | 2017-04-19 15:37 | HP ---
CHIEF COMPLAINT: Left lower quadrant abdominal pain, left back pain and temperature 102. HISTORY OF PRESENT ILLNESS: This is another admission for this 36-year-old white female, insulin dependent diabetic. She also has a history of vulvar cancer which was treated in [place] and has not recurred. On the day of admission she got up and started to have pain in the left low back area and then in the left lower quadrant. It grew worse and she developed a fever and chills and came to the emergency room. She was admitted with pain and possible sepsis. She denies any urinary complaints. REVIEW OF SYSTEMS: She has had no headaches, confusion, chest pain, cough, shortness of breath, hemoptysis, murmurs, rheumatic fever, nausea, vomiting, hematemesis, melena, urinary complaints, renal failure, etc. PAST MEDICAL HISTORY, FAMILY AND PERSONAL/SOCIAL HISTORY: Reveals she is allergic to TAPE and ASPIRIN. She has been on Zetia 10 mg a day, Lasix 20 mg 1/ 2 a day, Symbicort 160/4.5 one puff twice a day, KCL 20 mEq once a day, Lomotil p.r.n., Compaziine p.r.n., vitamin D, Topamax 50 mg once a day, Fioricet one q4 p.r.n., Tamoxifen 20 mg once a day, Prilosec 20 mg once a day, Zofran p.r.n., ProAir HFA two puffs q.i.d. p.r.n., Vicodin 5/325 twice a day p.r.n., Ativan 1 mg three times a day p.r.n., fenofibrate 160 once a day, Novalog mix 70/30, 100 units in the morning and 50 at night; Flexeril 10 mg t.i.d. p.r.n., Lipitor 80 h.s., ibuprofen 800 mg q.i.d. p.r.n., amitriptyline 25 mg once a day at bedtime , Trazodone 100 mg once a day at night, Benazepril 10 mg once a day, metformin 1 gm twice a day. She used to smoke and still does occasionally. Her blood sugars have been under fairly good control. PHYSICAL EXAM: Blood pressure 116/80, pulse 90, respirations 34 and temperature 102. GENERAL: She appeared to be uncomfortable and chronically ill in appearance. HEENT: Normal. Neck veins not distended. Thyroid is enlarged. CHEST: Clear. CARDIAC: Demonstrates sinus tachycardia. ABDOMEN: Tender in the left upper and particularly in the left lower quadrant. There are no masses. There is no rebound. She is also slightly tender in the left flank. EXTREMITIES: Normal. NEUROLOGIC: Intact. ASSESSMENT; 1. Left low back pain and left side abdominal pain with fever. 2. Rule out genitourinary etiology or diverticulitis. 3. Insulin dependent diabetes mellitus. 4. History of cancer of the vulva. PLAN: 1. Bedrest. 2. IV fluids. 3. Appropriate cultures. 4. Consult infectious disease, general surgery and gynecology. GENOVEVA
--- NOTE | 2017-04-19 15:40 | PN ---
DATE OF SERVICE: 04/19/2017 CHIEF COMPLAINT: Left low back and left lower quadrant pain. HISTORY OF PRESENT ILLNESS: This lady is still having quite a bit of discomfort in the abdomen. Flanks are nontender. PHYSICAL EXAM: CHEST: Clear. CARDIAC: Normal. ABDOMEN: She is still very tender in the left lower quadrant. IMPRESSION: 1. Pyelonephritis? 2. Diverticulitis? PLAN: Continue with IV fluids and IV antibiotics and await for evaluation by infectious disease, surgery and gynecology. GENOVEVA
[2017-04-19 17:48] LABS: Glucose,Whole Blood 211 mg/dL (75-99)
--- NOTE | 2017-04-19 18:36 | P.GSCN ---
History of Present Illness Consult date: 04/19/17 Reason for Consult: Abdominal pain History of present illness: Patient hospitalized with a several-day history of increasing pain in the left flank and left lower back. Today the pain has moved around to the left midabdomen as well. No dysuria or hematuria. She is having fevers at home of 102. In the hospital her white blood cell count is elevated. She is again having high fevers. She says she does not feel much better thus far. A CAT scan was performed which shows some inflammatory changes around the left kidney consistent with pyelonephritis. Urinalysis does show some bacteria and leukocyte esterase. Patient is diabetic. No prior history of urinary tract infections. No change in bowel habits. Patient is nausea but no vomiting. 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 Past Anesthesia/Blood Transfusion Reactions: No Reported Reaction Past Psychological History: No Psychological Hx Reported, Anxiety, Depression Smoking Status: Current every day smoker Past Alcohol Use History: Occasional Past Drug Use History: None Reported - Past Family History Mother Additional Family Medical History / Comment(s): uterine CA, Father Family Medical History: Diabetes Mellitus Additional Family Medical History / Comment(s): heart disease Medications and Allergies Home Medications Medication Instructions Recorded Confirmed Type Albuterol Inhaler [Ventolin Hfa 2 puff INHALATION RT-QID PRN 01/21/17 04/18/17 History Inhaler] Atorvastatin [Lipitor] 80 mg PO DAILY 01/21/17 04/18/17 History Benazepril [Lotensin] 10 mg PO DAILY 01/21/17 04/18/17 History Cyclobenzaprine [Flexeril] 10 mg PO TID PRN 01/21/17 04/18/17 History Diphenox-Atrop 2.5-0.025 mg 1 tab PO QID PRN 01/21/17 04/18/17 History [Lomotil] Ergocalciferol [Vitamin D2] 50,000 unit PO Q28D 01/21/17 04/18/17 History Fenofibrate 160 mg PO DAILY 01/21/17 04/18/17 History HYDROcodone/APAP 5-325MG [[place] 1 tab PO BID PRN 01/21/17 04/18/17 History 5-325] LORazepam [Ativan] 1 mg PO TID PRN 01/21/17 04/18/17 History Omeprazole [PriLOSEC] 20 mg PO DAILY PRN 01/21/17 04/18/17 History Ezetimibe [Zetia] 10 mg PO DAILY 04/18/17 04/18/17 History Furosemide [Lasix] 10 mg PO DAILY 04/18/17 04/18/17 History Insulin Aspart [NovoLOG Flexpen] See Protocol SQ AC-TID 04/18/17 04/18/17 History Potassium Chloride ER [K-Dur 20] 20 meq PO QID 04/18/17 04/18/17 History Tamoxifen Citrate 20 mg PO DAILY 04/18/17 04/18/17 History Allergies Allergy/AdvReac Type Severity Reaction Status Date / Time aspirin Allergy Rash/Hives Verified 02/24/17 20:26 Mushroom AdvReac Vomiting Verified 02/24/17 20:26 tramadol HCl [From Ultram] AdvReac Nausea & Verified 04/18/17 16:19 Vomiting Surgical - Exam Vital Signs Temp Pulse Resp BP Pulse Ox 101.8 F H 120 H 20 134/78 99 04/18/17 15:25 04/18/17 15:25 04/18/17 15:25 04/18/17 15:25 04/18/17 15:25 Physical exam: General: Well-developed, well-nourished HEENT: Normocephalic, sclerae nonicteric Abdomen: Left flank tenderness, mild left upper quadrant tenderness, nondistended Extremities: No edema Neuro: Alert and oriented Results - Labs 04/19/17 07:54 04/19/17 07:54 Abnormal Lab Results - Last 24 Hours (Table) 04/18/17 04/19/17 04/19/17 Range/Units 21:13 06:55 07:54 WBC 21.4 H (3.8-10.6) k/uL Neutrophils # 18.5 H (1.3-7.7) k/uL Monocytes # 1.5 H (0-1.0) k/uL Potassium (3.5-5.1) mmol/L Chloride (98-107) mmol/L Carbon Dioxide (22-30) mmol/L BUN (7-17) mg/dL Glucose (74-99) mg/dL POC Glucose (mg/dL) 125 H 235 H (75-99) mg/dL AST (14-36) U/L Total Protein (6.3-8.2) g/dL Albumin (3.5-5.0) g/dL 04/19/17 04/19/17 04/19/17 Range/Units 07:54 12:13 17:26 WBC (3.8-10.6) k/uL Neutrophils # (1.3-7.7) k/uL Monocytes # (0-1.0) k/uL Potassium 3.0 L* (3.5-5.1) mmol/L Chloride 111 H (98-107) mmol/L Carbon Dioxide 20 L (22-30) mmol/L BUN 5 L (7-17) mg/dL Glucose 177 H (74-99) mg/dL POC Glucose (mg/dL) 70 L 211 H (75-99) mg/dL AST 12 L (14-36) U/L Total Protein 5.8 L (6.3-8.2) g/dL Albumin 3.3 L (3.5-5.0) g/dL Microbiology - Last 24 Hours (Table) 04/18/17 16:11 Urine Culture - Preliminary Urine,Voided Diabetes panel 04/19/17 Range/Units 07:54 Sodium 140 (137-145) mmol/L Potassium 3.0 L* (3.5-5.1) mmol/L Chloride 111 H (98-107) mmol/L Carbon Dioxide 20 L (22-30) mmol/L BUN 5 L (7-17) mg/dL Creatinine 0.68 (0.52-1.04) mg/dL Glucose 177 H (74-99) mg/dL Calcium 8.9 (8.4-10.2) mg/dL AST 12 L (14-36) U/L ALT 24 (9-52) U/L Alkaline Phosphatase 58 (38-126) U/L Total Protein 5.8 L (6.3-8.2) g/dL Albumin 3.3 L (3.5-5.0) g/dL Calcium panel 04/19/17 Range/Units 07:54 Calcium 8.9 (8.4-10.2) mg/dL Albumin 3.3 L (3.5-5.0) g/dL Pituitary panel 04/19/17 Range/Units 07:54 Sodium 140 (137-145) mmol/L Potassium 3.0 L* (3.5-5.1) mmol/L Chloride 111 H (98-107) mmol/L Carbon Dioxide 20 L (22-30) mmol/L BUN 5 L (7-17) mg/dL Creatinine 0.68 (0.52-1.04) mg/dL Glucose 177 H (74-99) mg/dL Calcium 8.9 (8.4-10.2) mg/dL Adrenal panel 04/19/17 Range/Units 07:54 Sodium 140 (137-145) mmol/L Potassium 3.0 L* (3.5-5.1) mmol/L Chloride 111 H (98-107) mmol/L Carbon Dioxide 20 L (22-30) mmol/L BUN 5 L (7-17) mg/dL Creatinine 0.68 (0.52-1.04) mg/dL Glucose 177 H (74-99) mg/dL Calcium 8.9 (8.4-10.2) mg/dL Total Bilirubin 0.5 (0.2-1.3) mg/dL AST 12 L (14-36) U/L ALT 24 (9-52) U/L Alkaline Phosphatase 58 (38-126) U/L Total Protein 5.8 L (6.3-8.2) g/dL Albumin 3.3 L (3.5-5.0) g/dL Assessment and Plan (1) Abdominal pain Narrative/Plan: Continue IV antibiotics. Diet as tolerated. No surgical intervention planned. Consider urology evaluation of symptoms persist. Status: Acute
[2017-04-19] MEDS: FENOFIBRATE 160 MG TAB PO SCH (21:01)
[2017-04-19 21:39] LABS: Glucose,Whole Blood 87 mg/dL (75-99)
[2017-04-20] MEDS: HYDROcodone/APAP 5-325MG 1 EACH TAB PO PRN ×2 (05:25→22:39)
[2017-04-20 07:34] LABS: Glucose,Whole Blood 113 mg/dL (75-99)
[2017-04-20] MEDS: LISINOPRIL 10 MG TAB PO SCH (07:36)
[2017-04-20] MEDS: cefTRIAXone 2,000 MG in SODIUM CHLORIDE 0.9% 100 ML IVPB SCH (07:37)
[2017-04-20] MEDS: ATORVASTATIN 80 MG TAB PO SCH (07:37)
[2017-04-20] MEDS: INSULN ASP PRT/INSULIN ASPART 100 UNIT/ML 10 ML VIAL SQ SCH ×2 (07:37→17:40)
[2017-04-20] MEDS: TAMOXIFEN 10 MG TAB PO SCH (07:38)
[2017-04-20] MEDS: EZETIMIBE 10 MG TAB PO SCH (07:38)
[2017-04-20] MEDS: FUROSEMIDE 10 MG TAB PO SCH (07:38)
[2017-04-20] MEDS: HYDROmorphone 1 MG/ML 1 ML SYRINGE IVP PRN (07:38)
[2017-04-20] MEDS: POTASSIUM CHLORIDE ORAL LIQUID 40 MEQ/30 ML CUP PO SCH (07:44)
[2017-04-20 09:20] LABS: Basophils # (A) 0.1 k/uL (0-0.2); Basophils % (A) 0 %; CH 30.3; CHCM 34.3; Eosinophils # (A) 0.1 k/uL (0-0.7); Eosinophils % (A) 1 %; HCT 34.8 % (34.0-46.0); HDW 2.81; HGB 11.6 gm/dL (11.4-16.0); Luc # (Auto) 0.25; Luc % (Auto) 2; Lymphocytes # (A) 1.9 k/uL (1.0-4.8); Lymphocytes % (A) 12 %; MCH 29.8 pg (25.0-35.0); MCHC 33.5 g/dL (31.0-37.0); MCV 88.9 fL (80.0-100.0); Mean Platelet Volume 8.6; Monocytes # (A) 1.1 k/uL (0-1.0); Monocytes % (A) 7 %; Neutrophils # (A) 12.6 k/uL (1.3-7.7); Neutrophils % (A) 79 %; RBC 3.91 m/uL (3.80-5.40); RDW 13.6 % (11.5-15.5); WBC 16.1 k/uL (3.8-10.6); WBC (Perox) 17.63
[2017-04-20 09:42] LABS: ALT 24 U/L (9-52); AST 14 U/L (14-36); Alkaline Phosphatase 56 U/L (38-126); Anion Gap 8 mmol/L; Blood Urea Nitrogen 3 mg/dL (7-17); Calcium 8.4 mg/dL (8.4-10.2); Carbon Dioxide 18 mmol/L (22-30); Chloride 115 mmol/L (98-107); Glucose 152 mg/dL (74-99); Non-African American GFR(MDRD) >60 (>60 ml/min/1.73 sqM); Potassium 4.2 mmol/L (3.5-5.1); Sodium 141 mmol/L (137-145); Total Bilirubin 0.2 mg/dL (0.2-1.3); Total Protein 5.3 g/dL (6.3-8.2)
[2017-04-20] MEDS: ACETAMINOPHEN TAB 325 MG TAB PO PRN (10:25)
--- NOTE | 2017-04-20 11:37 | CONS ---
DATE OF SERVICE: 04/19/2017 REASON FOR CONSULTATION: Pyelonephritis. HISTORY OF PRESENT ILLNESS: The patient is a 36-year-old female who presented to the ER at [facility] yesterday evening with chief complaints of fever off and on for the last 2 to 3 days at home. The patient has been complaining of a flank pain and UTI like symptom with frequency and urgency and some dysuria. With these symptoms, the patient did present to [facility] ER and the patient did have a CT of the abdomen and pelvis, which did have possibility of a left sided pyelonephritis. Patient who did have a fever of 102.4 degrees Fahrenheit and elevated white count on admission of 19.6. Patient was started on Rocephin and admitted to the hospital and I was asked to see the patient for further recommendations regarding antibiotic therapy. REVIEW OF SYSTEMS: CONSTITUTIONAL: Positive for weakness along with fever. EYES: No complaint. ENT: No complaint. RESPIRATORY: No complaint. CARDIOVASCULAR: No complaint. GENITOURINARY: As per HPI. GASTROINTESTINAL: As per HPI. MUSCULOSKELETAL: No complaint. INTEGUMENTARY: No complaint. PSYCHOLOGICAL: No complaint. ENDOCRINE: No complaint. NEUROLOGIC: No complaint. PAST MEDICAL HISTORY: Significant for diabetes mellitus, uterine cancer, seizure disorder. PAST SURGICAL HISTORY: Hysterectomy and laser surgery of vaginal cancer. SOCIAL HISTORY: The patient current every day smoker. Occasional drinks. No drug use. FAMILY HISTORY: Mother with history of uterine cancer. Father had history of diabetes. Allergies to TRAMADOL and ASPIRIN. Medications include the patient is currently on Tylenol, [place], Ventolin, Lipitor, Rocephin 2 gram daily. She is on Flexeril, Lomotil, vitamin B12, Lasix , Dilaudid, NovoLog, Zestril, Ativan, morphine sulfate. On examination, blood pressure is 103/61 with a pulse of 112, temperature 99.2, T-max 102.4. She is 97% on room air. General description is a middle-age female lying in bed in no distress. No tachypnea or accessory muscle of respiration use. HEENT examination shows no pallor, scleral icterus. Oral mucous membranes are dry. NECK: Trachea is central. No thyromegaly. LUNGS: Unlabored breathing. Clear to auscultation anteriorly. No wheeze or crackles. HEART: S1 and S2, regular rate and rhythm. ABDOMEN: Soft. No tenderness. No guarding or rigidity. EXTREMITIES: No edema of feet. SKIN EXAMINATION: No rashes or masses palpable. NEUROLOGICALLY: The patient is awake, alert and oriented x3. Mood and affect normal. LABS: Hemoglobin is 13.2, white count 21.4 with a BUN of 5, creatinine 0.68. Urine has been positive with moderate leukocyte esterase with 33 WBCs. Cultures are currently pending. DIAGNOSTIC IMPRESSION AND PLAN: Patient with sepsis in a patient who did have fever of 102 degrees Fahrenheit and elevated white count meeting criteria for systemic inflammatory response syndrome. Source is likely left-sided pyelonephritis likely from enteric gram negative pathogen. PLAN: 1. Rocephin 2 grams IV daily. 2. Aggressive IV fluid. 3. Will follow up on clinical condition and culture to further adjust medication if needed. Thank you for this consultation. Will follow this patient along with you. GENOVEVA
[2017-04-20 12:19] LABS: Glucose,Whole Blood 134 mg/dL (75-99)
[2017-04-20] MEDS ORDERED: HYDROmorphone 1 MG/ML 1 ML SYRINGE IVP PRN (12:55)
--- NOTE | 2017-04-20 14:14 | P.PN ---
Subjective 36-year-old female was admitted on the day of admission to be evaluated for chief complaint left lower quadrant abdominal pain radiating into the back. Patient states she felt febrile temp was 102 patient stated should fever chills. Patient was tachycardic with leukocytosis patient was felt to be septic suspect due to pyelonephritis. Currently this morning the patient is stating the left lower quadrant pain has improved but has not resolved denies any burning on urination. IV antibiotics Rocephin as ordered. Reports no nausea no vomiting Objective - Vital Signs Vital signs: Vital Signs Temp 98.9 F 04/20/17 07:00 Pulse 93 04/20/17 07:00 Resp 20 04/20/17 07:00 BP 95/58 04/20/17 07:00 Pulse Ox 97 04/20/17 07:00 Intake & Output 04/19/17 04/20/17 04/20/17 18:59 06:59 18:59 Intake Total 400 Balance 400 Intake: Oral 400 Other: Voiding Method Toilet Toilet Toilet # Voids 2 1 - Exam Physical exam 36-year-old female resting in bed is not appearing acute distress Lungs essentially clear adequate air movement on room air Heart S1-S2 audible and regular denying chest pain Abdomen soft slight left lower quadrant tenderness with palpitation. No rebound. Bowel tones present. Extremities no evidence of any edema - Labs CBC & Chem 7: 04/20/17 09:10 04/20/17 09:10 Labs: Abnormal Lab Results - Last 24 Hours (Table) 04/19/17 04/20/17 04/20/17 Range/Units 17:26 07:22 09:10 WBC (3.8-10.6) k/uL Neutrophils # (1.3-7.7) k/uL Monocytes # (0-1.0) k/uL Chloride 115 H (98-107) mmol/L Carbon Dioxide 18 L (22-30) mmol/L BUN 3 L (7-17) mg/dL Glucose 152 H (74-99) mg/dL POC Glucose (mg/dL) 211 H 113 H (75-99) mg/dL Total Protein 5.3 L (6.3-8.2) g/dL Albumin 2.9 L (3.5-5.0) g/dL 04/20/17 04/20/17 Range/Units 09:10 12:15 WBC 16.1 H (3.8-10.6) k/uL Neutrophils # 12.6 H (1.3-7.7) k/uL Monocytes # 1.1 H (0-1.0) k/uL Chloride (98-107) mmol/L Carbon Dioxide (22-30) mmol/L BUN (7-17) mg/dL Glucose (74-99) mg/dL POC Glucose (mg/dL) 134 H (75-99) mg/dL Total Protein (6.3-8.2) g/dL Albumin (3.5-5.0) g/dL Microbiology - Last 24 Hours (Table) 04/18/17 16:11 Urine Culture - Preliminary Urine,Voided Gram Neg Bacilli Coagulase Negative Staph 04/18/17 16:11 Blood Culture - Preliminary Blood No Growth after 24 hours Assessment and Plan Plan: Impression Present on admission left lower quadrant pain febrile tachycardic hypotensive leukocytosis meet SIRS criteria sepsis suspect due to pyelonephritis with a UTI Present on admission hypokalemia 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 Sherrie Chacko nurse practitioner acting as scribe for signing physician.
[2017-04-20] MEDS ORDERED: IBUPROFEN 800 MG TAB PO PRN (15:25)
--- NOTE | 2017-04-20 15:29 | US ---
EXAMINATION TYPE: US renals and bladder DATE OF EXAM: 04/20/2017 COMPARISON: NONE CLINICAL HISTORY: Possible hydronephrosis. EXAM MEASUREMENTS: Right Kidney: 11.8 x 4.8 x 5.6 cm Left Kidney: 11.1 x 6.2 x 5.1 cm Right Kidney: No hydronephrosis or masses seen Left Kidney: No hydronephrosis or masses seen Bladder: wnl Bilateral Jets seen: Yes left jet There is no evidence for hydronephrosis at this point in time. No nephrolithiasis is seen. No george s are identified. The urinary bladder is anechoic. Left ureteral jet is seen. IMPRESSION: No evidence of hydronephrosis or nephrolithiasis.
--- NOTE | 2017-04-20 17:17 | P.GSCN ---
History of Present Illness Consult date: 04/20/17 Reason for Consult: Pyelonephritis Requesting physician: Manny Wallace History of present illness: The patient is a 36-year-old white female with an unremarkable urologic history. She believes she may have been told in the past she had a kidney stone , but she has never passed one. She reports a 3 day history of fever, chills, and left flank pain. She was admitted with presumptive left acute pyelonephritis and is currently receiving antibiotics. She states that she is feeling somewhat better today. Review of Systems - Constitutional Reports chills, Reports fever - Respiratory Denies dyspnea - Gastrointestinal Denies nausea, Denies vomiting - Genitourinary Genitourinary: Denies dysuria, Denies hematuria Past Medical History Past Medical History: Cancer, Diabetes Mellitus, Seizure Disorder Additional Past Medical History / Comment(s): uterine CA seizures 1week ago History of Any Multi-Drug Resistant Organisms: None Reported Past Surgical History: Hysterectomy Additional Past Surgical History / Comment(s): Laser surgery for vaginal cancer December/2012 Past Anesthesia/Blood Transfusion Reactions: No Reported Reaction Past Psychological History: No Psychological Hx Reported, Anxiety, Depression Smoking Status: Current every day smoker Past Alcohol Use History: Occasional Past Drug Use History: None Reported - Past Family History Mother Additional Family Medical History / Comment(s): uterine CA, Father Family Medical History: Diabetes Mellitus Additional Family Medical History / Comment(s): heart disease Medications and Allergies Home Medications Medication Instructions Recorded Confirmed Type Albuterol Inhaler [Ventolin Hfa 2 puff INHALATION RT-QID PRN 01/21/17 04/18/17 History Inhaler] Atorvastatin [Lipitor] 80 mg PO DAILY 01/21/17 04/18/17 History Benazepril [Lotensin] 10 mg PO DAILY 01/21/17 04/18/17 History Cyclobenzaprine [Flexeril] 10 mg PO TID PRN 01/21/17 04/18/17 History Diphenox-Atrop 2.5-0.025 mg 1 tab PO QID PRN 01/21/17 04/18/17 History [Lomotil] Ergocalciferol [Vitamin D2] 50,000 unit PO Q28D 01/21/17 04/18/17 History Fenofibrate 160 mg PO DAILY 01/21/17 04/18/17 History HYDROcodone/APAP 5-325MG [[place] 1 tab PO BID PRN 01/21/17 04/18/17 History 5-325] LORazepam [Ativan] 1 mg PO TID PRN 01/21/17 04/18/17 History Omeprazole [PriLOSEC] 20 mg PO DAILY PRN 01/21/17 04/18/17 History Ezetimibe [Zetia] 10 mg PO DAILY 04/18/17 04/18/17 History Furosemide [Lasix] 10 mg PO DAILY 04/18/17 04/18/17 History Insulin Aspart [NovoLOG Flexpen] See Protocol SQ AC-TID 04/18/17 04/18/17 History Potassium Chloride ER [K-Dur 20] 20 meq PO QID 04/18/17 04/18/17 History Tamoxifen Citrate 20 mg PO DAILY 04/18/17 04/18/17 History Allergies Allergy/AdvReac Type Severity Reaction Status Date / Time aspirin Allergy Rash/Hives Verified 02/24/17 20:26 Mushroom AdvReac Vomiting Verified 02/24/17 20:26 tramadol HCl [From Ultram] AdvReac Nausea & Verified 04/18/17 16:19 Vomiting Surgical - Exam Vital Signs Temp Pulse Resp BP Pulse Ox 101.8 F H 120 H 20 134/78 99 04/18/17 15:25 04/18/17 15:25 04/18/17 15:25 04/18/17 15:25 04/18/17 15:25 - General well developed, well nourished, no distress - Abdomen Abdomen: soft, tender (Mild left-sided tenderness to palpation, left CVA tenderness), no guarding, no rigid, no rebound - Neurologic no disoriented, no combative - Psychiatric oriented to time, oriented to person, oriented to place, speech is normal, memory intact Results - Labs 04/20/17 09:10 04/20/17 09:10 Abnormal Lab Results - Last 24 Hours (Table) 04/19/17 04/20/17 04/20/17 Range/Units 17:26 07:22 09:10 WBC (3.8-10.6) k/uL Neutrophils # (1.3-7.7) k/uL Monocytes # (0-1.0) k/uL Chloride 115 H (98-107) mmol/L Carbon Dioxide 18 L (22-30) mmol/L BUN 3 L (7-17) mg/dL Glucose 152 H (74-99) mg/dL POC Glucose (mg/dL) 211 H 113 H (75-99) mg/dL Total Protein 5.3 L (6.3-8.2) g/dL Albumin 2.9 L (3.5-5.0) g/dL 04/20/17 04/20/17 Range/Units 09:10 12:15 WBC 16.1 H (3.8-10.6) k/uL Neutrophils # 12.6 H (1.3-7.7) k/uL Monocytes # 1.1 H (0-1.0) k/uL Chloride (98-107) mmol/L Carbon Dioxide (22-30) mmol/L BUN (7-17) mg/dL Glucose (74-99) mg/dL POC Glucose (mg/dL) 134 H (75-99) mg/dL Total Protein (6.3-8.2) g/dL Albumin (3.5-5.0) g/dL Microbiology - Last 24 Hours (Table) 04/18/17 16:11 Urine Culture - Preliminary Urine,Voided Gram Neg Bacilli Coagulase Negative Staph 04/18/17 16:11 Blood Culture - Preliminary Blood No Growth after 24 hours Diabetes panel 04/20/17 Range/Units 09:10 Sodium 141 (137-145) mmol/L Potassium 4.2 (3.5-5.1) mmol/L Chloride 115 H (98-107) mmol/L Carbon Dioxide 18 L (22-30) mmol/L BUN 3 L (7-17) mg/dL Creatinine 0.58 (0.52-1.04) mg/dL Glucose 152 H (74-99) mg/dL Calcium 8.4 (8.4-10.2) mg/dL AST 14 (14-36) U/L ALT 24 (9-52) U/L Alkaline Phosphatase 56 (38-126) U/L Total Protein 5.3 L (6.3-8.2) g/dL Albumin 2.9 L (3.5-5.0) g/dL Calcium panel 04/20/17 Range/Units 09:10 Calcium 8.4 (8.4-10.2) mg/dL Albumin 2.9 L (3.5-5.0) g/dL Pituitary panel 04/20/17 Range/Units 09:10 Sodium 141 (137-145) mmol/L Potassium 4.2 (3.5-5.1) mmol/L Chloride 115 H (98-107) mmol/L Carbon Dioxide 18 L (22-30) mmol/L BUN 3 L (7-17) mg/dL Creatinine 0.58 (0.52-1.04) mg/dL Glucose 152 H (74-99) mg/dL Calcium 8.4 (8.4-10.2) mg/dL Adrenal panel 04/20/17 Range/Units 09:10 Sodium 141 (137-145) mmol/L Potassium 4.2 (3.5-5.1) mmol/L Chloride 115 H (98-107) mmol/L Carbon Dioxide 18 L (22-30) mmol/L BUN 3 L (7-17) mg/dL Creatinine 0.58 (0.52-1.04) mg/dL Glucose 152 H (74-99) mg/dL Calcium 8.4 (8.4-10.2) mg/dL Total Bilirubin 0.2 (0.2-1.3) mg/dL AST 14 (14-36) U/L ALT 24 (9-52) U/L Alkaline Phosphatase 56 (38-126) U/L Total Protein 5.3 L (6.3-8.2) g/dL Albumin 2.9 L (3.5-5.0) g/dL - Imaging CT scan - abdomen: report reviewed, image reviewed Assessment and Plan (1) Acute pyelonephritis Status: Acute Plan: Clinical, laboratory, and radiographic findings are all consistent with acute left pyelonephritis. Preliminary urine culture has shown greater than 100,000 gram-negative bacilli, greater than 100,000 coagulase-negative Staph. Blood cultures are negative. I would suggest that ceftriaxone be continued, pending the final urine culture result. Antibiotics can then be adjusted accordingly, and she should be treated for a minimum of 10-14 days. There is no indication for urologic intervention at this time. Please notify me if I can be of any further assistance. Time with Patient: Greater than 30
--- NOTE | 2017-04-20 17:23 | P.PN ---
Subjective Principal diagnosis: Abdominal pain Patient feels much better today. Her fevers are trending downwards. White blood cell count improved. She was seen by urology today. Objective - Vital Signs Vital signs: Vital Signs Temp 98.6 F 04/20/17 14:56 Pulse 91 04/20/17 14:56 Resp 16 04/20/17 14:56 BP 79/52 04/20/17 14:56 Pulse Ox 99 04/20/17 14:56 Intake & Output 04/19/17 04/20/17 04/20/17 18:59 06:59 18:59 Intake Total 400 Balance 400 Intake: Oral 400 Other: Voiding Method Toilet Toilet Toilet # Voids 2 1 2 - Exam Abdomen: Soft, mild left-sided tenderness - Labs CBC & Chem 7: 04/20/17 09:10 04/20/17 09:10 Labs: Abnormal Lab Results - Last 24 Hours (Table) 04/19/17 04/20/17 04/20/17 Range/Units 17:26 07:22 09:10 WBC (3.8-10.6) k/uL Neutrophils # (1.3-7.7) k/uL Monocytes # (0-1.0) k/uL Chloride 115 H (98-107) mmol/L Carbon Dioxide 18 L (22-30) mmol/L BUN 3 L (7-17) mg/dL Glucose 152 H (74-99) mg/dL POC Glucose (mg/dL) 211 H 113 H (75-99) mg/dL Total Protein 5.3 L (6.3-8.2) g/dL Albumin 2.9 L (3.5-5.0) g/dL 04/20/17 04/20/17 Range/Units 09:10 12:15 WBC 16.1 H (3.8-10.6) k/uL Neutrophils # 12.6 H (1.3-7.7) k/uL Monocytes # 1.1 H (0-1.0) k/uL Chloride (98-107) mmol/L Carbon Dioxide (22-30) mmol/L BUN (7-17) mg/dL Glucose (74-99) mg/dL POC Glucose (mg/dL) 134 H (75-99) mg/dL Total Protein (6.3-8.2) g/dL Albumin (3.5-5.0) g/dL Microbiology - Last 24 Hours (Table) 04/18/17 16:11 Urine Culture - Preliminary Urine,Voided Gram Neg Bacilli Coagulase Negative Staph 04/18/17 16:11 Blood Culture - Preliminary Blood No Growth after 24 hours Assessment and Plan (1) Abdominal pain Narrative/Plan: Continue antibiotics for pyelonephritis. We'll sign off at this point. Please contact if needed. Status: Acute
[2017-04-20 17:25] LABS: Glucose,Whole Blood 192 mg/dL (75-99)
--- NOTE | 2017-04-20 20:30 | PN ---
DATE OF SERVICE: 04/20/17 REASON FOR FOLLOW UP: Pyelonephritis. INTERVAL HISTORY: The patient did have low grade fever this morning of 100.1. However, overall fever pattern has improved. She has been breathing comfortably. Denies significant chest pain. No shortness of breath or cough. No abdominal pain or diarrhea. On examination, blood pressure 95/58, pulse 93, temperature 98.9, she is 99% on room air. General description is a young female up in the room in no distress. Respiratory system: Unlabored breathing. Clear to auscultation. Heart: S1 , S2 regular rate and rhythm. Abdomen soft, no tenderness. Very minimal left flank tenderness. LABS: Hemoglobin 11.6, white count 16.1, BUN 3, creatinine 0.58. Urine showing gram negative bacilli. Blood cultures negative. DIAGNOSTIC IMPRESSION AND PLAN: Patient with gram negative left sided pyelonephritis. The patients feels better this morning to which Rocephin will be continued. Adjust antibiotic further based on the cultures, clinical response. Continue supportive care. [facility]
[2017-04-20 21:07] LABS: Glucose,Whole Blood 191 mg/dL (75-99)
[2017-04-20] MEDS: FENOFIBRATE 160 MG TAB PO SCH (21:32)
[2017-04-21] MEDS: ACETAMINOPHEN TAB 325 MG TAB PO PRN (07:00)
[2017-04-21 07:33] LABS: Glucose,Whole Blood 146 mg/dL (75-99)
[2017-04-21 07:47] LABS: Basophils % (A) 0 %; CH 30.4; CHCM 34.5; Eosinophils # (A) 0.2 k/uL (0-0.7); Eosinophils % (A) 2 %; HCT 35.6 % (34.0-46.0); HDW 2.83; Luc # (Auto) 0.17; Luc % (Auto) 1; Lymphocytes # (A) 1.1 k/uL (1.0-4.8); Lymphocytes % (A) 9 %; MCH 29.9 pg (25.0-35.0); MCHC 33.7 g/dL (31.0-37.0); MCV 88.6 fL (80.0-100.0); Mean Platelet Volume 8.7; Monocytes # (A) 0.6 k/uL (0-1.0); Monocytes % (A) 5 %; Neutrophils # (A) 10.7 k/uL (1.3-7.7); Neutrophils % (A) 83 %; RBC 4.01 m/uL (3.80-5.40); RDW 13.7 % (11.5-15.5); WBC 12.8 k/uL (3.8-10.6); WBC (Perox) 13.63
[2017-04-21] MEDS: INSULN ASP PRT/INSULIN ASPART 100 UNIT/ML 10 ML VIAL SQ SCH ×2 (08:18→18:15)
[2017-04-21] MEDS: ATORVASTATIN 80 MG TAB PO SCH (08:19)
[2017-04-21] MEDS: EZETIMIBE 10 MG TAB PO SCH (08:19)
[2017-04-21] MEDS: LISINOPRIL 10 MG TAB PO SCH (08:19)
[2017-04-21] MEDS: cefTRIAXone 2,000 MG in SODIUM CHLORIDE 0.9% 100 ML IVPB SCH (08:19)
[2017-04-21] MEDS: FUROSEMIDE 10 MG TAB PO SCH (08:19)
[2017-04-21] MEDS: TAMOXIFEN 10 MG TAB PO SCH (08:20)
[2017-04-21] MEDS: HYDROcodone/APAP 5-325MG 1 EACH TAB PO PRN (08:20)
[2017-04-21 08:23] LABS: ALT 29 U/L (9-52); AST 20 U/L (14-36); Alkaline Phosphatase 77 U/L (38-126); Anion Gap 10 mmol/L; Blood Urea Nitrogen 3 mg/dL (7-17); Calcium 8.5 mg/dL (8.4-10.2); Carbon Dioxide 17 mmol/L (22-30); Chloride 112 mmol/L (98-107); Glucose 121 mg/dL (74-99); Non-African American GFR(MDRD) >60 (>60 ml/min/1.73 sqM); Potassium 3.7 mmol/L (3.5-5.1); Sodium 139 mmol/L (137-145); Total Bilirubin 0.3 mg/dL (0.2-1.3); Total Protein 5.7 g/dL (6.3-8.2)
[2017-04-21 08:49] LABS: Hemoglobin A1C 7.2 % (4.2-6.1)
--- NOTE | 2017-04-21 09:36 | PN ---
CHIEF COMPLAINT: Pyelonephritis. HISTORY OF PRESENT ILLNESS: This lady is improving and temperature is coming down. Discomfort is better. Potassium is slightly low. PHYSICAL EXAM: Chest is clear. Cardiac exam is normal. Abdomen is soft and nontender. IMPRESSION: 1. Pyelonephritis. 2. Diabetes. PLAN: Continue with IV fluids and antibiotics. MTDD
[2017-04-21 11:57] LABS: Glucose,Whole Blood 158 mg/dL (75-99)
[2017-04-21 17:18] LABS: Glucose,Whole Blood 147 mg/dL (75-99)
[2017-04-21] MEDS: FENOFIBRATE 160 MG TAB PO SCH (20:28)
[2017-04-21 21:11] LABS: Glucose,Whole Blood 263 mg/dL (75-99)
--- NOTE | 2017-04-21 21:20 | PN ---
CHIEF COMPLAINT: Pyelonephritis. HISTORY OF PRESENT ILLNESS: This lady is doing well and the pain is almost gone. The temperature is coming down. PHYSICAL EXAMINATION: Chest is clear. Cardiac exam is normal. Abdomen soft and nontender. IMPRESSION: Pyelonephritis. PLAN: Continue antibiotics and she may be able to go home soon. GENOVEVA
[2017-04-22] MEDS: INSULN ASP PRT/INSULIN ASPART 100 UNIT/ML 10 ML VIAL SQ SCH (07:33)
[2017-04-22 07:35] LABS: Glucose,Whole Blood 114 mg/dL (75-99)
[2017-04-22 09:02] LABS: ALT 32 U/L (9-52); AST 15 U/L (14-36); Alkaline Phosphatase 76 U/L (38-126); Anion Gap 11 mmol/L; Blood Urea Nitrogen 7 mg/dL (7-17); Calcium 8.5 mg/dL (8.4-10.2); Carbon Dioxide 20 mmol/L (22-30); Chloride 111 mmol/L (98-107); Glucose 146 mg/dL (74-99); Non-African American GFR(MDRD) >60 (>60 ml/min/1.73 sqM); Potassium 3.5 mmol/L (3.5-5.1); Sodium 142 mmol/L (137-145); Total Bilirubin 0.2 mg/dL (0.2-1.3); Total Protein 5.6 g/dL (6.3-8.2)
[2017-04-22] MEDS: cefTRIAXone 2,000 MG in SODIUM CHLORIDE 0.9% 100 ML IVPB SCH (09:20)
[2017-04-22] MEDS: FUROSEMIDE 10 MG TAB PO SCH (09:20)
[2017-04-22] MEDS: EZETIMIBE 10 MG TAB PO SCH (09:20)
[2017-04-22] MEDS: ATORVASTATIN 80 MG TAB PO SCH (09:20)
[2017-04-22] MEDS: HYDROcodone/APAP 5-325MG 1 EACH TAB PO PRN (09:21)
[2017-04-22] MEDS: LISINOPRIL 10 MG TAB PO SCH (09:21)
[2017-04-22] MEDS: TAMOXIFEN 10 MG TAB PO SCH (09:21)
--- NOTE | 2017-04-22 09:24 | PN ---
DATE OF SERVICE: 04/21/17 REASON FOR FOLLOW UP: Pyelonephritis. INTERVAL HISTORY: The patient did spike a fever of 101 early this morning. However, the patient has been is afebrile since then. The patient has been breathing comfortably. Denies significant chest pain. No shortness of breath. No cough. No nausea or vomiting or diarrhea. On examination, blood pressure 107/71, pulse 104, temperature 99.4, T-max 101.9. She is 98% on room air. General description is a young female lying in the bed in no distress. Respiratory system: Unlabored breathing. Clear to auscultation anteriorly. Heart: S1, S2 regular rate and rhythm. Abdomen soft, no tenderness. LABS: Hemoglobin 12.8, admission 9.6 with BUN 30, creatinine 0.55. Urine with E. coli and streptococcus. more likely contamination. Main pathogen is E. coli. Blood culture has been negative. The patient did have renal ultrasound which show no evidence of hydronephrosis or nephrolithiasis. DIAGNOSTIC IMPRESSION AND PLAN: Patient with E. coli left side pyelonephritis for which the patient will continue Rocephin. We will make sure the patient is afebrile for at least 24 hours before discharge. Hopefully finish therapy with oral amoxicillin as organism is pansensitive. Continue supportive care. MTDD
[2017-04-22 12:07] LABS: Glucose,Whole Blood 246 mg/dL (75-99)
[2017-04-22 15:24] VITALS: BP 116/57; PULSE 81; RESP 20; TEMP 97
--- NOTE | 2017-04-23 11:16 | PN ---
DATE OF SERVICE: 04/22/2017 REASON FOR FOLLOW UP: E. coli, left-sided pyelonephritis. INTERVAL HISTORY: The patient is afebrile. She is feeling better, breathing comfortably. Denies significant chest pain. No shortness of breath, no cough. No abdominal or any diarrhea. On examination, blood pressure 94/72, pulse rate of 84, temperature 96.9. She is 100% on room air. GENERAL DESCRIPTION: Middle-aged female lying in bed in no distress. RESPIRATORY: Unlabored breathing, clear to auscultation. HEART: S1/S2 regular. ABDOMEN: No tenderness. Labs reviewed. BUN 7, creatinine 0.58. CBC was not done today. DIAGNOSTIC IMPRESSION: Escherichia coli, left-sided pyelonephritis ( ) medical improvement. PLAN: At this time definitive therapy with oral amoxicillin 500 mg for another 10 days. Script has been sent to the pharmacy. EGNOVEVA
--- NOTE | 2017-04-24 07:04 | DS ---
CHIEF COMPLAINT: Left-sided flank abdominal pain with fever. HISTORY OF PRESENT ILLNESS AND PHYSICAL EXAM: Details of this lady's history and physical can be found in the initial workup. LABORATORY STUDIES: While in the hospital, she had laboratory studies, the details can be found in the laboratory section of her chart. COURSE IN THE HOSPITAL: After admission, she was placed on bed rest, started on intravenous fluids and antibiotics and it was determined that she had a left- sided pyelonephritis. With antibiotics, her pain did begin diminishing, temperature came down and she was doing well and she could be discharged on . She will go home on amoxicillin 500 mg t.i.d. and be seen in the office in 1 or 2 days. FINAL DIAGNOSES: 1. Left-sided pyelonephritis. 2. Insulin-dependent diabetes mellitus. OPERATIONS: None. CONSULTATIONS: Infectious Disease. She is improved. GENOVEVA
--- NOTE | 2017-04-25 10:31 | CDI ---
In responding to this query, please exercise your independent professional judgment. The [facility] Coding Staff and Clinical Documentation Specialists appreciate your assistance in clarifying documentation, maintaining compliance with coding guidelines, accurately documenting patients condition and capturing severity of illness. The fact that a question is asked does not imply that any particular answer is desired or expected. Communication forms are a method of clarifying documentation and are not made part of the Legal Health Record. Thank you in advance for your clarification. Last Revision, July 2015 Rico [address] [place] [address] Documentation Clarification Form Date: 04/25/2017 10:08:00 AM From: Blanca Veras Phone: Admit Date: 04/18/2017 7:14:00 PM Patient Name: Valencia Osorio Visit Number: [id number] Discharge Date: Dr. Manny Wallace Sepsis is documented in the H&P, Dr. Alves's consult note and in Sherrie Chacko's 04/20 progress note. It was not documented in the discharge summary. Patient history/risk factors: Patient presented with acute left sided pyelonephritis. Clinical Indicators: Fever, chills and tachycardia Lab findings: WBC 19.6 on admission and 21.4 on the second day. Lactic acid 1.4 on admission. Vital Signs: T. 101.8 on admission, P. 99 on admission and up to 116 on the 2nd day, R. 220 on day of admission, BP 85/45 on admission. Treatment: Ceftriaxone IV and Piperacillin/Tazobactam IV Consults: Patient with sepsis who did have fever of 102, elevated white count meeting criteria for systemic inflammatory response syndrome. In your professional opinion, can you please clarify if Sepsis was Ruled In or Ruled Out? Other Unable to determine Please document in your progress notes and discharge summary in order to capture severity of illness and risk of mortality. Include clinical findings that support your diagnosis. FYI: Press F11 to launch patient chart. If you have questions about this query, please contact Zoey Knight Heavy Line Technician at [phone] between 8am and 5pm. GENOVEVA
[2017-04-26] MEDS ORDERED: ERGOCALCIFEROL 50,000 UNIT CAP PO SCH (09:00)
--- NOTE | 2017-04-27 08:54 | CDI ---
In responding to this query, please exercise your independent professional judgment. The [facility] Coding Staff and Clinical Documentation Specialists appreciate your assistance in clarifying documentation, maintaining compliance with coding guidelines, accurately documenting patients condition and capturing severity of illness. The fact that a question is asked does not imply that any particular answer is desired or expected. Communication forms are a method of clarifying documentation and are not made part of the Legal Health Record. Thank you in advance for your clarification. Last Revision, July 2015 Rico [address] [place] [address] Documentation Clarification Form Date: 04/25/2017 10:08:00 AM From: Blanca Veras Phone: Admit Date: 04/18/2017 7:14:00 PM Patient Name: Valencia Osorio Visit Number: [id number] Discharge Date: Dr. Manny Wallace Thank you for signing your query. Please document your response in the Discharge Summary prior to signing this query. Sepsis is documented in the H&P, Dr. Alves's consult note and in Sherrie Chacko's 04/20 progress note. It was not documented in the discharge summary. Patient history/risk factors: Patient presented with acute left sided pyelonephritis. Clinical Indicators: Fever, chills and tachycardia Lab findings: WBC 19.6 on admission and 21.4 on the second day. Lactic acid 1.4 on admission. Vital Signs: T. 101.8 on admission, P. 99 on admission and up to 116 on the 2nd day, R. 220 on day of admission, BP 85/45 on admission. Treatment: Ceftriaxone IV and Piperacillin/Tazobactam IV Consults: Patient with sepsis who did have fever of 102, elevated white count meeting criteria for systemic inflammatory response syndrome. In your professional opinion, can you please clarify if Sepsis was Ruled In or Ruled Out? Other Unable to determine Please document in your progress notes and discharge summary in order to capture severity of illness and risk of mortality. Include clinical findings that support your diagnosis. FYI: Press F11 to launch patient chart. Place X here if this finding has no clinical significance, is not applicable or if you are not able to provide any additional documentation. GENOVEVA
--- NOTE | 2017-05-03 09:53 | CDI ---
In responding to this query, please exercise your independent professional judgment. The [facility] Coding Staff and Clinical Documentation Specialists appreciate your assistance in clarifying documentation, maintaining compliance with coding guidelines, accurately documenting patients condition and capturing severity of illness. The fact that a question is asked does not imply that any particular answer is desired or expected. Communication forms are a method of clarifying documentation and are not made part of the Legal Health Record. Thank you in advance for your clarification. Last Revision, July 2015 Rico [address] [place] [address] Documentation Clarification Form Date: 04/25/2017 10:08:00 AM From: Blanca Veras Phone: Admit Date: 04/18/2017 7:14:00 PM Patient Name: Valencia Osorio Visit Number: [id number] Discharge Date: Dr. Manny Wallace Thank you for signing your query. Please document an addendum in your discharge summary prior to signing this query. Sepsis is documented in the H&P, Dr. Alves's consult note and in Sherrie Chacko's 04/20 progress note. It was not documented in the discharge summary. Patient history/risk factors: Patient presented with acute left sided pyelonephritis. Clinical Indicators: Fever, chills and tachycardia Lab findings: WBC 19.6 on admission and 21.4 on the second day. Lactic acid 1.4 on admission. Vital Signs: T. 101.8 on admission, P. 99 on admission and up to 116 on the 2nd day, R. 220 on day of admission, BP 85/45 on admission. Treatment: Ceftriaxone IV and Piperacillin/Tazobactam IV Consults: Patient with sepsis who did have fever of 102, elevated white count meeting criteria for systemic inflammatory response syndrome. In your professional opinion, can you please clarify if Sepsis was Ruled In or Ruled Out? Other Unable to determine Please document in your discharge summary in order to capture severity of illness and risk of mortality. Include clinical findings that support your diagnosis. FYI: Press F11 to launch patient chart. If you have any questions regarding this query, please contact Zoey Knight Reinforcing Steel Worker at [phone] between 8am and 5pm. GENOVEVA
== END 2017-04-22 16:19 | disposition home or self-care (01) | DRG 690 ==
LOC: EC 15:18 → 4MS4W 19:14
PROVIDERS: ADMIT Family Medicine; ATTEND Family Medicine
DX: N10 Acute pyelonephritis (principal); E87.2 Acidosis; B96.20 Unspecified Escherichia coli [E. coli] as the cause of diseases classified elsewhere; E11.9 Type 2 diabetes mellitus without complications; E87.6 Hypokalemia; F17.200 Nicotine dependence, unspecified, uncomplicated; G40.909 Epilepsy, unspecified, not intractable, without status epilepticus; Z79.4 Long term (current) use of insulin; Z79.899 Other long term (current) drug therapy; Z85.44 Personal history of malignant neoplasm of other female genital organs; Z88.6 Allergy status to analgesic agent; Z88.5 Allergy status to narcotic agent
CPT/HCPCS: 36415; 71020; 74177; 76770; 80053; 81001; 83036; 83605; 85025; 87040; 87077; 87086; 87186; 96365; 96366; 99285

== ENCOUNTER → 2017-05-09 | Outpatient (CLI) | payer OTHER ==
--- NOTE | 2017-05-09 16:09 | US ---
EXAMINATION TYPE: US kidneys/renal and bladder DATE OF EXAM: 05/09/2017 COMPARISON: CT & US CLINICAL HISTORY: N15.9 Kidney Infection. pain EXAM MEASUREMENTS: Right Kidney: 11.4 x 4.2 x 5.2 cm Left Kidney: 11.3 x 5.9 x 5.2 cm Right Kidney: small cortical cyst measures 1.2 x 0.8 x 0.9 cm Left Kidney: prominent column of evin noted Bladder: wnl Bilateral Jets seen: Yes There is no evidence for hydronephrosis at this point in time. No nephrolithiasis is seen. The urin pranay bladder is anechoic. Bilateral ureteral jets are seen. IMPRESSION: Small 1.2 cm cortical right renal cyst. Otherwise, unremarkable renal ultrasound.
== END | disposition home or self-care (01) ==
LOC: RADUSWWP 15:43
PROVIDERS: ATTEND Family Medicine
DX: N28.1 Cyst of kidney, acquired (principal); R10.84 Generalized abdominal pain; Z88.6 Allergy status to analgesic agent; Z91.09 Other allergy status, other than to drugs and biological substances
CPT/HCPCS: 76770

== ENCOUNTER → 2017-07-23 | Outpatient (CLI) | payer OTHER ==
[2017-07-23 15:14] LABS: Blood Urea Nitrogen 7 mg/dL (7-17); Non-African American GFR(MDRD) >60 (>60 ml/min/1.73 sqM)
--- NOTE | 2017-07-23 16:01 | CT ---
EXAMINATION TYPE: CT chest wo/w con DATE OF EXAM: 07/23/2017 COMPARISON: NONE HISTORY: Cough, shortness of breath CT DLP: 865 mGycm. Automated Exposure Control for Dose Reduction was Utilized. TECHNIQUE: CT scan of the thorax is performed following with IV Contrast, patient injected with 100 mL of Omnipaque 300. FINDINGS: LUNGS: The lungs are grossly clear, there is no concerning parenchymal mass or nodule identified. T here is no pleural effusion or pneumothorax seen. The tracheobronchial tree is patent. Minimal subse gmental bibasilar atelectasis. MEDIASTINUM: There are no greater than 1 cm hilar or mediastinal lymph nodes. No pericardial effusi on is seen. Minimal residual thymic tissue is seen within the superior mediastinum, and reticular sh ape. Ascending aorta is within normal limits of size measuring 2.2 cm. OTHER: On the unenhanced images of the partially visualized upper abdomen there are dystrophic paintb knight like calcifications of the renal medulla bilaterally suggesting medullary calcinosis or medullar y sponge kidney. IMPRESSION: 1. No focal consolidation, pleural effusion or pneumothorax. No pulmonary mass. Minimal subsegmental bibasilar atelectasis. 2. Dystrophic paintbrush like calcifications of the renal medulla bilaterally suggesting medullary ca lcinosis or medullary sponge kidney.
== END | disposition home or self-care (01) ==
LOC: RADCTMAIN 14:38
PROVIDERS: ATTEND Internal Medicine
DX: J98.11 Atelectasis (principal)
CPT/HCPCS: 82565; 84520; 71270; 36415; Q9967

== ENCOUNTER → 2017-07-27 | Outpatient (CLI) | payer OTHER | END | disposition home or self-care (01) | LOC: LABMAIN 17:46 | PROVIDERS: ATTEND Family Medicine | DX: R07.9 Chest pain, unspecified (principal) | CPT/HCPCS: 36415; 82553; 85379 ==

== ENCOUNTER → 2018-03-21 | Outpatient (CLI) | payer OTHER ==
[2018-03-21 17:55] LABS: Blood Urea Nitrogen 11 mg/dL (7-17)
--- NOTE | 2018-03-21 21:51 | CT ---
EXAMINATION TYPE: CT brain wo/w con DATE OF EXAM: 03/21/2018 COMPARISON: 03/06/2017 HISTORY: Increasing severity of seizures with headaches [address] DLP: 2223 mGycm Automated exposure control for dose reduction was used. CONTRAST: Performed without and with IV Contrast, patient injected with 100 mL of Isovue M300. FINDINGS: Ventricles and sulci appear normal. There is no mass effect nor midline shift. There is no sign of in tracranial hemorrhage. The calvarium is intact. There is no pathologic enhancement. IMPRESSION: NEGATIVE CT SCAN OF THE BRAIN. NO CHANGE.
== END | disposition home or self-care (01) ==
LOC: RADCTMAIN 17:22
PROVIDERS: ATTEND Family Medicine
DX: R56.9 Unspecified convulsions (principal); R51 Headache; Z88.6 Allergy status to analgesic agent; Z91.09 Other allergy status, other than to drugs and biological substances
CPT/HCPCS: 82565; 84520; 70470; 36415; Q9967

== ENCOUNTER → 2018-11-27 | Outpatient (CLI) | payer OTHER ==
[2018-11-27 06:36] LABS: Blood Urea Nitrogen 11 mg/dL (7-17)
--- NOTE | 2018-11-27 10:31 | CT ---
EXAMINATION TYPE: CT chest w con DATE OF EXAM: 11/27/2018 COMPARISON: Prior chest CT July 23, 2017 HISTORY: Hemoptysis, history of vulva cancer. CT DLP: 131 mGycm. Automated Exposure Control for Dose Reduction was Utilized. TECHNIQUE: CT scan of the thorax is performed following with IV Contrast, patient injected with 100 mL of Isovue 300. FINDINGS: LUNGS: Dependent atelectasis right lower lobe is present. No suspicious nodules or masses are identif ied bilaterally. No pleural effusion or pneumothorax is seen. Tracheobronchial tree is patent. No bernard picious consolidation is seen. MEDIASTINUM: There are no greater than 1 cm hilar or mediastinal lymph nodes. No cardiomegaly or pe ricardial effusion is seen. Some residual thymus tissue suspected axial image 19. OTHER: A 1.1 cm low dense lesion lateral aspect mid pole level right kidney axial image 58 favor simp le cyst. IMPRESSION: No suspicious finding is seen to account for patient's symptoms of hemoptysis. No suspici ous acute pulmonary process.
== END | disposition home or self-care (01) ==
LOC: RADCTMAIN 05:59
PROVIDERS: ATTEND Family Medicine
DX: R04.2 Hemoptysis (principal); Z91.048 Other nonmedicinal substance allergy status; Z88.6 Allergy status to analgesic agent
CPT/HCPCS: 82565; 84520; 71260; 36415; Q9967

== ENCOUNTER → 2019-01-28 | Outpatient (CLI) | payer OTHER ==
[2019-01-28 14:54] LABS: Blood Urea Nitrogen 9 mg/dL (7-17)
--- NOTE | 2019-01-28 15:52 | CT ---
EXAMINATION TYPE: CT angio chest DATE OF EXAM: 01/28/2019 COMPARISON: Prior chest CT 11/27/2018 HISTORY: SOB, chest pain x1 week CT DLP: 115.9 mGycm Automated exposure control for dose reduction was used. CONTRAST: CTA scan of the thorax is performed with IV Contrast, patient injected with 100 mL of Isovue 370, pul monary embolism protocol. MIP images are created and reviewed. 3D reconstructed images are created on an independent workstation and reviewed. FINDINGS: LUNGS: The lungs are grossly clear, there is no concerning parenchymal mass or nodule identified. T here is no pleural effusion or pneumothorax seen. The tracheobronchial tree is patent. AORTA: No additional significant abnormality is seen. MEDIASTINUM: There is satisfactory enhancement of the pulmonary artery and its branches, there is no CT evidence for pulmonary embolism. There are no greater than 1 cm hilar or mediastinal lymph nodes. No pericardial effusion is seen. OTHER: No additional significant abnormality is seen. IMPRESSION: NO EVIDENT PULMONARY EMBOLISM.
== END ==
LOC: RADCTMAIN 14:05
PROVIDERS: ATTEND Family Medicine
DX: R07.9 Chest pain, unspecified (principal); R79.1 Abnormal coagulation profile; R06.02 Shortness of breath; Z88.6 Allergy status to analgesic agent; Z91.040 Latex allergy status
CPT/HCPCS: 82565; 84520; 71275; 36415; Q9967

== ENCOUNTER 2021-07-27 13:42 | Inpatient (IN) | payer OTHER ==
[2021-07-27] MEDS ORDERED: SODIUM CHLORIDE 0.9% 1,000 ML IV ONE (14:28)
[2021-07-27] MEDS ORDERED: MORPHINE SULFATE 4 MG/ML SYRINGE IVP STA (14:28)
[2021-07-27] MEDS ORDERED: ONDANSETRON 4 MG/2 ML VIAL IVP STA (14:28)
--- NOTE | 2021-07-27 14:41 | ED ---
Skin/Abscess/FB HPI - General Source: patient, RN notes reviewed Mode of arrival: ambulatory Limitations: no limitations <Amador Worrell - Last Filed: 07/27/21 16:32> <Abby Potts - Last Filed: 08/04/21 01:35> - General Chief complaint: Skin/Abscess/Foreign Body Stated complaint: infection-sent by PCP Time Seen by Provider: 07/27/21 14:15 - History of Present Illness Initial comments: This a 41-year-old female presents emergency Department with chief complaint of facial infection. Patient states started week and was seen at [facility] and was started on Bactrim states it has not helped. Patient saw PCP yesterday and again today who stated was worse was sent in for further evaluation states redness is streaking down into her neck region. Patient states she's had increasing pain, swelling, drainage from her face. (Amador Worrell) - Related Data Home Medications Medication Instructions Recorded Confirmed Potassium Chloride ER [K-Dur 20] 20 meq PO DAILY PRN 04/18/17 07/27/21 Albuterol Nebulized [Ventolin 2.5 mg INHALATION RT-BID 07/27/21 07/27/21 Nebulized] Ergocalciferol [Vitamin D2 (1250 1,250 mcg PO TH 07/27/21 07/27/21 Mcg = 70144 Iu)] Furosemide [Lasix] 10 mg PO DAILY PRN 07/27/21 07/27/21 Ibuprofen [Motrin] 800 mg PO BID PRN 07/27/21 07/27/21 Allergies Allergy/AdvReac Type Severity Reaction Status Date / Time aspirin Allergy Rash/Hives Verified 07/27/21 16:57 Mushroom AdvReac Anaphylaxis Verified 07/27/21 16:57 Review of Systems ROS Other: All systems not noted in ROS Statement are negative. <Amador Worrell - Last Filed: 07/27/21 16:32> ROS Other: All systems not noted in ROS Statement are negative. <Abby Potts - Last Filed: 08/04/21 01:35> ROS Statement: Those systems with pertinent positive or pertinent negative responses have been documented in the HPI. Past Medical History Past Medical History: Cancer, Diabetes Mellitus, Seizure Disorder Additional Past Medical History / Comment(s): uterine CA seizures 1week ago History of Any Multi-Drug Resistant Organisms: None Reported Past Surgical History: Hysterectomy Additional Past Surgical History / Comment(s): Laser surgery for vaginal cancer 2012 Past Anesthesia/Blood Transfusion Reactions: No Reported Reaction Past Psychological History: Anxiety, Depression Smoking Status: Current every day smoker Past Alcohol Use History: Occasional Past Drug Use History: None Reported - Past Family History Mother Additional Family Medical History / Comment(s): uterine CA, Father Family Medical History: Diabetes Mellitus Additional Family Medical History / Comment(s): heart disease <Amador Worrell - Last Filed: 07/27/21 16:32> General Exam Limitations: no limitations General appearance: alert, in no apparent distress Head exam: Present: atraumatic, normocephalic, normal inspection Eye exam: Present: normal appearance, PERRL, EOMI. Absent: scleral icterus, conjunctival injection, periorbital swelling ENT exam: Present: normal oropharynx, mucous membranes moist, other (Sore by the right side of her mouth, erythema, swelling extending down into the anterior neck region). Absent: normal exam Neck exam: Present: normal inspection, full ROM. Absent: tenderness, meningismus, lymphadenopathy Respiratory exam: Present: normal lung sounds bilaterally. Absent: respiratory distress, wheezes, rales, rhonchi, stridor Cardiovascular Exam: Present: regular rate, normal rhythm, normal heart sounds. Absent: systolic murmur, diastolic murmur, rubs, gallop, clicks GI/Abdominal exam: Present: soft, normal bowel sounds. Absent: distended, tenderness, guarding, rebound, rigid <Amador Worrell - Last Filed: 07/27/21 16:32> Course Vital Signs 07/27/21 07/27/21 14:00 20:56 Temperature 98.7 F 98.4 F Pulse Rate 94 Pulse Rate [ 98 Left Pulse Oximetery] Respiratory 20 16 Rate Blood Pressure 112/74 Blood Pressure 93/65 [Right Arm] O2 Sat by Pulse 99 97 Oximetry Medical Decision Making - Lab Data Result diagrams: 07/27/21 15:11 07/27/21 15:11 <Amador Worrell - Last Filed: 07/27/21 16:32> - Lab Data Result diagrams: 07/31/21 10:15 07/31/21 10:15 <Abby Potts - Last Filed: 08/04/21 01:35> - Medical Decision Making 41-year-old presented for facial swelling and pain. Patient has diffuse cellulitis no definite abscess. I did discuss case with Dr. Wallace accepts admission for IV antibiotics. Patient has failed outpatient treatment. (Amador Worrell) I was available for consultation in the emergency department. The history and physical exam were done by the midlevel provider. I was consulted for this patients care. I reviewed the case with the midlevel provider and based on their presentation of the patient, I agree with the assessment, medical decision making and plan of care as documented. Chart was dictated using [employer] dictation software. Attempts were made to correct any dictation errors however some typographical errors may persist. (Abby Potts) - Lab Data Lab Results 07/27/21 07/27/21 07/27/21 Range/Units 15:11 15:11 15:11 WBC 15.2 H (3.8-10.6) k/uL RBC 4.56 (3.80-5.40) m/uL Hgb 14.2 (11.4-16.0) gm/dL Hct 39.5 (34.0-46.0) % MCV 86.8 (80.0-100.0) fL MCH 31.1 (25.0-35.0) pg MCHC 35.8 (31.0-37.0) g/dL RDW 13.3 (11.5-15.5) % Plt Count 233 (150-450) k/uL MPV 8.0 Neutrophils % 83 % Lymphocytes % 8 % Monocytes % 6 % Eosinophils % 1 % Basophils % 0 % Neutrophils # 12.5 H (1.3-7.7) k/uL Lymphocytes # 1.2 (1.0-4.8) k/uL Monocytes # 0.9 (0-1.0) k/uL Eosinophils # 0.1 (0-0.7) k/uL Basophils # 0.0 (0-0.2) k/uL Sodium 136 L (137-145) mmol/L Potassium 3.3 L (3.5-5.1) mmol/L Chloride 115 H (98-107) mmol/L Carbon Dioxide 12 L (22-30) mmol/L Anion Gap 9 mmol/L BUN 11 (7-17) mg/dL Creatinine 0.76 (0.52-1.04) mg/dL Est GFR (CKD-EPI)AfAm >90 (>60 ml/min/1.73 sqM) Est GFR (CKD-EPI)NonAf >90 (>60 ml/min/1.73 sqM) Glucose 134 H (74-99) mg/dL Plasma Lactic Acid Mich 0.7 (0.7-2.0) mmol/L Calcium 9.2 (8.4-10.2) mg/dL Total Bilirubin 0.3 (0.2-1.3) mg/dL AST 24 (14-36) U/L ALT 23 (4-34) U/L Alkaline Phosphatase 68 (38-126) U/L Total Protein 7.0 (6.3-8.2) g/dL Albumin 3.9 (3.5-5.0) g/dL Disposition <Amador Worrell - Last Filed: 07/27/21 16:32> <Abby Potts - Last Filed: 08/04/21 01:35> Clinical Impression: Facial cellulitis, Failure of outpatient treatment Disposition: ADMITTED IP TO THIS HOSP
[2021-07-27 15:18] LABS: Basophils % (A) 0 %; Eosinophils # (A) 0.1 k/uL (0-0.7); Eosinophils % (A) 1 %; HCT 39.5 % (34.0-46.0); HGB 14.2 gm/dL (11.4-16.0); Lymphocytes # (A) 1.2 k/uL (1.0-4.8); Lymphocytes % (A) 8 %; MCH 31.1 pg (25.0-35.0); MCHC 35.8 g/dL (31.0-37.0); MCV 86.8 fL (80.0-100.0); Monocytes # (A) 0.9 k/uL (0-1.0); Monocytes % (A) 6 %; Neutrophils # (A) 12.5 k/uL (1.3-7.7); Neutrophils % (A) 83 %; Platelet Count 233 k/uL (150-450); RBC 4.56 m/uL (3.80-5.40); RDW 13.3 % (11.5-15.5); WBC 15.2 k/uL (3.8-10.6)
[2021-07-27 15:29] LABS: ALT 23 U/L (4-34); AST 24 U/L (14-36); African American GFR (CKD) >90 (>60 ml/min/1.73 sqM); Albumin 3.9 g/dL (3.5-5.0); Alkaline Phosphatase 68 U/L (38-126); Anion Gap 9 mmol/L; Blood Urea Nitrogen 11 mg/dL (7-17); Calcium 9.2 mg/dL (8.4-10.2); Carbon Dioxide 12 mmol/L (22-30); Chloride 115 mmol/L (98-107); Glucose 134 mg/dL (74-99); Non-African American GFR(CKD) >90 (>60 ml/min/1.73 sqM); Potassium 3.3 mmol/L (3.5-5.1); Sodium 136 mmol/L (137-145); Total Bilirubin 0.3 mg/dL (0.2-1.3)
--- NOTE | 2021-07-27 15:53 | CT ---
EXAMINATION TYPE: CT soft tissue neck w con DATE OF EXAM: 07/27/2021 3:45 PM COMPARISON: None HISTORY: facial abscess under right eye CT DLP: 153.2 mGycm Automated exposure control for dose reduction was used. CONTRAST: CT scan of the neck is performed following with IV Contrast, patient injected with 100 mL of Isovue 3 00. Axial images are obtained, coronal and sagittal reformatted images are reviewed. FINDINGS: Airway: No gross abnormality seen. Parotid/submandibular glands: No gross abnormality seen. Carotid/Vascular Structures: Unremarkable Osseous Structures: Unremarkable Other: Skin thickening, soft tissue density increased along the subcutaneous fat over the anterior fa ce IMPRESSION: Correlate for cellulitis. No evident abscess.
[2021-07-27] MEDS ORDERED: AMPICILLIN-SULBACTAM 3 GM in SODIUM CHLORIDE 0.9% 100 ML IVPB STA (16:31)
[2021-07-27] MEDS ORDERED: VANCOMYCIN IV PER PHARMACY 1 EACH MISC MISCELLANE PRN (16:32)
[2021-07-27] MEDS ORDERED: NALOXONE 0.4 MG/ML 1 ML VIAL IV PRN (16:33)
[2021-07-27] MEDS ORDERED: ACETAMINOPHEN TAB 325 MG TAB PO PRN (16:33)
[2021-07-27] MEDS ORDERED: VANCOMYCIN 1,000 MG in SODIUM CHLORIDE 0.9% 250 ML IVPB STA (16:41)
[2021-07-27] MEDS: HYDROcodone/APAP 5-325MG 1 EACH TAB PO PRN ×2 (17:10→22:41)
[2021-07-27] MEDS: SODIUM CHLORIDE 0.9% 1,000 ML IV SCH (17:12)
[2021-07-27 23:00] LABS: Glucose,Whole Blood 168 mg/dL (75-99)
[2021-07-28] MEDS: HYDROcodone/APAP 5-325MG 1 EACH TAB PO PRN ×4 (04:47→19:46)
[2021-07-28] MEDS: AMPICILLIN-SULBACTAM 3 GM in SODIUM CHLORIDE 0.9% 100 ML IVPB SCH ×6 (05:21→23:39)
[2021-07-28] MEDS ORDERED: VANCOMYCIN 1,000 MG in SODIUM CHLORIDE 0.9% 250 ML IVPB SCH (06:00)
[2021-07-28] MEDS: SODIUM CHLORIDE 0.9% 1,000 ML IV SCH ×4 (06:05→23:41)
[2021-07-28 07:12] LABS: African American GFR (CKD) >90 (>60 ml/min/1.73 sqM); Anion Gap 7 mmol/L; Blood Urea Nitrogen 6 mg/dL (7-17); Carbon Dioxide 11 mmol/L (22-30); Chloride 118 mmol/L (98-107); Glucose 137 mg/dL (74-99); Non-African American GFR(CKD) >90 (>60 ml/min/1.73 sqM); Potassium 3.1 mmol/L (3.5-5.1); Sodium 136 mmol/L (137-145)
[2021-07-28] MEDS ORDERED: Potassium Replacement Protocol 1 EACH MISC MISCELLANE PRN (14:05)
[2021-07-28] MEDS: VANCOMYCIN 750 MG in SODIUM CHLORIDE 0.9% 250 ML IVPB SCH ×2 (15:42→21:15)
[2021-07-28] MEDS ORDERED: IBUPROFEN 600 MG TAB PO PRN (15:44)
[2021-07-28] MEDS: POTASSIUM BICARBONATE/CIT AC 20 MEQ TABLET.EFF NG-TUBE SCH (17:01)
[2021-07-29] MEDS: HYDROcodone/APAP 5-325MG 1 EACH TAB PO PRN ×5 (03:15→21:23)
[2021-07-29] MEDS ORDERED: VANCOMYCIN TROUGH DUE 1 EACH MISC MISCELLANE ONE (05:00)
[2021-07-29] MEDS: VANCOMYCIN 750 MG in SODIUM CHLORIDE 0.9% 250 ML IVPB SCH (05:47)
[2021-07-29] MEDS: AMPICILLIN-SULBACTAM 3 GM in SODIUM CHLORIDE 0.9% 100 ML IVPB SCH ×4 (05:47→23:15)
[2021-07-29 06:56] LABS: African American GFR (CKD) >90 (>60 ml/min/1.73 sqM); Non-African American GFR(CKD) >90 (>60 ml/min/1.73 sqM)
[2021-07-29 10:34] LABS: Basophils % (A) 0 %; Eosinophils # (A) 0.3 k/uL (0-0.7); Eosinophils % (A) 4 %; HCT 32.5 % (34.0-46.0); Lymphocytes # (A) 1.8 k/uL (1.0-4.8); Lymphocytes % (A) 24 %; MCH 30.8 pg (25.0-35.0); MCHC 34.3 g/dL (31.0-37.0); MCV 89.6 fL (80.0-100.0); Mean Platelet Volume 9.7; Monocytes # (A) 0.6 k/uL (0-1.0); Monocytes % (A) 8 %; Neutrophils # (A) 4.5 k/uL (1.3-7.7); Neutrophils % (A) 61 %; Platelet Count 202 k/uL (150-450); RBC 3.63 m/uL (3.80-5.40); RDW 12.9 % (11.5-15.5); WBC 7.4 k/uL (3.8-10.6)
[2021-07-29 10:44] LABS: HGB 11.2 gm/dL (11.4-16.0)
[2021-07-29 10:45] LABS: Potassium 3.4 mmol/L (3.5-5.1)
[2021-07-29] MEDS ORDERED: VANCOMYCIN 1,000 MG in SODIUM CHLORIDE 0.9% 250 ML IVPB SCH (14:00)
[2021-07-29] MEDS: VANCOMYCIN 1,000 MG in SODIUM CHLORIDE 0.9% 250 ML IVPB SCH (17:30)
[2021-07-29] MEDS: SODIUM CHLORIDE 0.9% 1,000 ML IV SCH ×2 (17:36→21:26)
[2021-07-29] MEDS ORDERED: POTASSIUM CHLORIDE ER 20 MEQ TAB.ER PO PRN (17:36)
[2021-07-29] MEDS ORDERED: FUROSEMIDE 20 MG TAB PO PRN (17:36)
--- NOTE | 2021-07-29 18:46 | PN ---
PROGRESS NOTE DATE OF SERVICE: 07/29/2021 CHIEF COMPLAINT: MRSA cellulitis of the right cheek. HISTORY OF PRESENT ILLNESS: This lady is doing a bit better. The swelling, redness and pain began to slowly subside. Physical exam: Intense redness in the right side of the cheek is improving and the ulcer is drying up. IMPRESSION: MRSA abscess and cellulitis of the right cheek and neck. PLAN: 1. Continue with IV fluids and antibiotics. 2. Prescribe her Motrin which she takes at home. MMODL / IJN: [id number] /
--- NOTE | 2021-07-29 18:46 | HP ---
HISTORY AND PHYSICAL CHIEF COMPLAINT: Bacterial infection of the right cheek with cellulitis and lymphangitis. HISTORY OF PRESENT ILLNESS: This is another admission for this 41-year-old white female who has a long-standing history of insulin-dependent diabetes mellitus. She woke up with a sore at the corner of her mouth on the right. It was very painful. It became somewhat ulcerated and moist and started to drain pus. She developed surrounding cellulitis and she came into the office. She had been in the emergency room and was given Bactrim DS. She was switched to Augmentin and came back a day later and it was worse. She now had extension of the cellulitis down in the right anterior neck acting as lymphangitis. She was admitted. REVIEW OF SYSTEMS: She has had no chills, fever, chest pain, shortness of breath, abdominal pain, etc. Past medical history, family history and personal and social histories are unremarkable and noncontributory otherwise. She is insulin-dependent. SHE IS ALLERGIC TO ASPIRIN. She has been on ProAir, Tamoxifen 20 mg once a day, topiramate 200 mg twice a day, atorvastatin 80 once a day, Advair Diskus, metformin 1 g twice a day, Humalog 13 units in the morning and 50 in the afternoon. She is also on Lasix 10 mg once a day, potassium and updrafts with ipratropium and albuterol. She does smoke. PHYSICAL EXAMINATION: Blood pressure 128/70 with a pulse of 89, respirations 17, she is afebrile. In general, she appeared to be well developed, well nourished, no acute distress. Skin color is normal. Skin is warm, dry. Lymph nodes are not enlarged. Head, ears, eyes, nose, mouth and throat were normal except for the purulent ulcerated area on the right cheek near the corner of her mouth. There is a surrounding cellulitis with redness and tenderness extending down into the right anterior neck. Chest is clear. Cardiac exam is normal. Abdomen is soft and nontender. Extremities are normal. IMPRESSION: 1. Probable MRSA ulcer of the right cheek with cellulitis and lymphangitis. 2. Insulin-dependent diabetes mellitus. PLAN: 1. Bedrest. 2. Culture. 3. IV fluids and antibiotics. MMODL / IJN: [id number] /
--- NOTE | 2021-07-29 18:52 | PN ---
PROGRESS NOTE DATE OF SERVICE: 07/28/2021 CHIEF COMPLAINT: MRSA ulcer and cellulitis of the face. HISTORY OF PRESENT ILLNESS: This lady is still quite uncomfortable. The area is slightly less intense and red. PHYSICAL EXAMINATION: Temperature is normal. The area of cellulitis is slowly improving. IMPRESSION: MRSA ulcer and cellulitis of the right cheek and right neck. PLAN: Continue with IV fluids and vancomycin. MMODL / IJN: [id number] /
[2021-07-29] MEDS: IBUPROFEN 800 MG TAB PO PRN (19:35)
[2021-07-29] MEDS: ALBUTEROL NEBULIZED 2.5 MG/3 ML INHALATION SCH (20:46)
[2021-07-30] MEDS: HYDROcodone/APAP 5-325MG 1 EACH TAB PO PRN ×4 (02:23→19:07)
[2021-07-30] MEDS: SODIUM CHLORIDE 0.9% 1,000 ML IV SCH ×3 (02:24→16:45)
[2021-07-30] MEDS: VANCOMYCIN 1,000 MG in SODIUM CHLORIDE 0.9% 250 ML IVPB SCH ×3 (02:27→18:03)
[2021-07-30] MEDS: AMPICILLIN-SULBACTAM 3 GM in SODIUM CHLORIDE 0.9% 100 ML IVPB SCH ×4 (05:17→23:00)
[2021-07-30] MEDS: IBUPROFEN 800 MG TAB PO PRN ×3 (05:20→19:07)
[2021-07-30] MEDS: ALBUTEROL NEBULIZED 2.5 MG/3 ML INHALATION SCH ×2 (07:55→19:44)
--- NOTE | 2021-07-30 13:51 | PN ---
PROGRESS NOTE DATE OF SERVICE: 07/30/2021 CHIEF COMPLAINT: MRSA cellulitis of the face and neck. HISTORY OF PRESENT ILLNESS: This lady is doing better. The lesion at the corner of her mouth has healed. She still has significant redness, tenderness and adenopathy just below the body of the mandible. Chest is clear. Cardiac exam is normal. IMPRESSION: MRSA abscess and cellulitis of the right lower cheek and anterior neck. PLAN: Continue with IV vancomycin. MMODL / IJN: [id number] /
[2021-07-31] MEDS: SODIUM CHLORIDE 0.9% 1,000 ML IV SCH ×2 (02:21→10:10)
[2021-07-31] MEDS: VANCOMYCIN 1,000 MG in SODIUM CHLORIDE 0.9% 250 ML IVPB SCH ×2 (02:21→11:11)
[2021-07-31] MEDS: HYDROcodone/APAP 5-325MG 1 EACH TAB PO PRN ×2 (02:25→10:09)
[2021-07-31] MEDS: AMPICILLIN-SULBACTAM 3 GM in SODIUM CHLORIDE 0.9% 100 ML IVPB SCH ×2 (05:22→12:36)
[2021-07-31] MEDS: ALBUTEROL NEBULIZED 2.5 MG/3 ML INHALATION SCH (07:43)
[2021-07-31] MEDS ORDERED: VANCOMYCIN TROUGH DUE 1 EACH MISC MISCELLANE ONE (10:00)
[2021-07-31 10:45] LABS: Basophils % (A) 0 %; Eosinophils # (A) 0.2 k/uL (0-0.7); Eosinophils % (A) 3 %; HCT 32.1 % (34.0-46.0); HGB 11.1 gm/dL (11.4-16.0); Lymphocytes # (A) 1.7 k/uL (1.0-4.8); Lymphocytes % (A) 22 %; MCH 30.3 pg (25.0-35.0); MCHC 34.5 g/dL (31.0-37.0); MCV 87.8 fL (80.0-100.0); Mean Platelet Volume 8.2; Monocytes # (A) 0.4 k/uL (0-1.0); Monocytes % (A) 6 %; Neutrophils # (A) 5.1 k/uL (1.3-7.7); Neutrophils % (A) 67 %; Platelet Count 273 k/uL (150-450); RBC 3.65 m/uL (3.80-5.40); RDW 12.8 % (11.5-15.5); WBC 7.5 k/uL (3.8-10.6)
[2021-07-31 10:55] LABS: ALT 13 U/L (4-34); AST 18 U/L (14-36); African American GFR (CKD) >90 (>60 ml/min/1.73 sqM); Albumin 2.9 g/dL (3.5-5.0); Albumin/Globulin Ratio 1.1; Alkaline Phosphatase 47 U/L (38-126); Anion Gap 7 mmol/L; Blood Urea Nitrogen 2 mg/dL (7-17); Carbon Dioxide 15 mmol/L (22-30); Chloride 118 mmol/L (98-107); Globulin 2.6 g/dL; Glucose 113 mg/dL (74-99); Non-African American GFR(CKD) >90 (>60 ml/min/1.73 sqM); Potassium 3.3 mmol/L (3.5-5.1); Sodium 140 mmol/L (137-145); Total Bilirubin 0.2 mg/dL (0.2-1.3); Total Protein 5.5 g/dL (6.3-8.2)
[2021-07-31] MEDS ORDERED: Potassium Replacement Protocol 1 EACH MISC MISCELLANE PRN (11:14)
[2021-07-31] MEDS: IBUPROFEN 800 MG TAB PO PRN (11:21)
[2021-07-31] MEDS: POTASSIUM CHLORIDE ER 20 MEQ TAB.ER PO SCH ×2 (11:22→12:36)
[2021-07-31 11:56] VITALS: BP 115/75; PULSE 70; RESP 16; TEMP 98.6
--- NOTE | 2021-07-31 12:44 | DS ---
DISCHARGE SUMMARY CHIEF COMPLAINT: Bacterial infection of the right cheek with cellulitis and lymphangitis, not responding to outpatient treatment. HISTORY OF PRESENT ILLNESS AND PHYSICAL EXAMINATION: Details of this lady's history and physical can be found in the initial workup. LABORATORY STUDIES: While she was in the hospital she had laboratory studies, details of which can be found in the laboratory section of her chart. COURSE IN THE HOSPITAL: After admission she was placed on bedrest and started on intravenous fluids and IV vancomycin. The ulcer slowly dried up, as did the cellulitis. She continued to have swelling and lymphangitis from the right mandibular body down into the right anterior neck. However, pain, redness and swelling were subsiding and she was afebrile. It was felt that she could go home. She will go home on her usual activity, diet and medications, and she will go back on her Bactrim DS and she will come into the office the day of discharge. FINAL DIAGNOSES: 1. MRSA ulcer, cellulitis and lymphangitis of the right cheek and the right anterior neck. 2. Insulin-dependent diabetes mellitus. OPERATIONS: None. CONSULTATION: Infectious Disease. She is improved. MMODL / IJN: [id number] /
[2021-07-31] MEDS ORDERED: VANCOMYCIN 1,250 MG in SODIUM CHLORIDE 0.9% 250 ML IVPB SCH (19:00)
== END 2021-07-31 13:59 | disposition home or self-care (01) | DRG 603 ==
LOC: EC 13:42 → 5NMEDONC 16:14
PROVIDERS: ADMIT Family Medicine; ATTEND Family Medicine
DX: L03.211 Cellulitis of face (principal); L03.221 Cellulitis of neck; E11.9 Type 2 diabetes mellitus without complications; G40.909 Epilepsy, unspecified, not intractable, without status epilepticus; Z79.4 Long term (current) use of insulin; Z20.822 Contact with and (suspected) exposure to COVID-19; B95.62 Methicillin resistant Staphylococcus aureus infection as the cause of diseases classified elsewhere; F17.210 Nicotine dependence, cigarettes, uncomplicated; Z71.6 Tobacco abuse counseling; Z79.51 Long term (current) use of inhaled steroids; Z79.810 Long term (current) use of selective estrogen receptor modulators (SERMs); Z79.899 Other long term (current) drug therapy; Z85.44 Personal history of malignant neoplasm of other female genital organs; Z85.42 Personal history of malignant neoplasm of other parts of uterus; Z90.710 Acquired absence of both cervix and uterus; Z86.59 Personal history of other mental and behavioral disorders; Z98.890 Other specified postprocedural states; Z88.6 Allergy status to analgesic agent; Z88.5 Allergy status to narcotic agent; Z91.018 Allergy to other foods; Z83.3 Family history of diabetes mellitus; Z82.49 Family history of ischemic heart disease and other diseases of the circulatory system; Z80.49 Family history of malignant neoplasm of other genital organs
CPT/HCPCS: 36415; 70491; 80048; 80051; 80053; 80202; 82565; 83605; 85025; 87040; 87077; 87186; 87635; 96361; 96374; 96375; 99284

== ENCOUNTER 2021-10-11 07:24 | Emergency (ER) | payer OTHER ==
[2021-10-11 07:29] VITALS: BP 132/89; PULSE 83; RESP 18; TEMP 97.8
[2021-10-11] MEDS ORDERED: ACETAMINOPHEN TAB 325 MG TAB PO STA (07:40)
--- NOTE | 2021-10-11 07:51 | ED ---
Fall HPI - General Chief Complaint: Fall Stated Complaint: [facility] - fall, lt hand injury Time Seen by Provider: 10/11/21 07:27 Source: patient Mode of arrival: ambulatory - History of Present Illness Initial Comments: Patient is a 41-year-old female with a past medical history of seizures who presents with fall on outstretched left hand. Patient reports she was walking down the stairs at 5 AM at work when she slipped and fell on her outstretched left hand. She reports the stairs were wet from the snow. Patient reports she used her left hand to avoid hitting her head on the metal rail. Patient denies LOC, chest pain, shortness of breath, dizziness, and seizure before the fall. Patient denies head trauma and LOC after the fall. Patient denies use of blood thinners. Patient reports 7/10 pain over the anterior and posterior left distal forearm, anterior and posterior left wrist, and anterior palm of left hand. Patient has left anatomical snuffbox pain. Patient reports her left wrist was numb at first but is no longer numb. She reports full range of motion of the left wrist, left hands, and left hand digits. - Related Data Home Medications Medication Instructions Recorded Confirmed Albuterol Nebulized [Ventolin 2.5 mg INHALATION RT-QID PRN 07/27/21 10/11/21 Nebulized] Ergocalciferol [Vitamin D2 (1250 1,250 mcg PO Q30D 07/27/21 10/11/21 Mcg = 76627 Iu)] Ibuprofen [Motrin] 800 mg PO BID PRN 07/27/21 10/11/21 Albuterol Sulfate [Proair Hfa] 2 puff INHALATION RT-QID PRN 10/11/21 10/11/21 clindamycin HCL [Cleocin] 300 mg PO TID 10/11/21 10/11/21 Allergies Allergy/AdvReac Type Severity Reaction Status Date / Time aspirin Allergy Rash/Hives Verified 10/11/21 08:33 Mushroom AdvReac Anaphylaxis Verified 10/11/21 08:33 Review of Systems ROS Statement: Those systems with pertinent positive or pertinent negative responses have been documented in the HPI. ROS Other: All systems not noted in ROS Statement are negative. Past Medical History Past Medical History: Cancer, Diabetes Mellitus, Seizure Disorder Additional Past Medical History / Comment(s): uterine CA seizures 1week ago History of Any Multi-Drug Resistant Organisms: MRSA Date of last positivie culture/infection: 07/27/21 MDRO Source:: MRSA BLOOD Past Surgical History: Hysterectomy Additional Past Surgical History / Comment(s): Laser surgery for vaginal cancer 2012 Past Anesthesia/Blood Transfusion Reactions: No Reported Reaction Past Psychological History: Anxiety, Depression Smoking Status: Current every day smoker Past Alcohol Use History: None Reported Past Drug Use History: None Reported - Past Family History Mother Additional Family Medical History / Comment(s): uterine CA, Father Family Medical History: Diabetes Mellitus Additional Family Medical History / Comment(s): heart disease General Exam Limitations: no limitations General appearance: alert, in no apparent distress Head exam: Present: atraumatic, normocephalic, normal inspection Eye exam: Present: normal appearance, PERRL, EOMI. Absent: scleral icterus, conjunctival injection, periorbital swelling ENT exam: Present: normal exam, mucous membranes moist Neck exam: Present: normal inspection. Absent: tenderness, meningismus, lymphadenopathy Respiratory exam: Present: normal lung sounds bilaterally. Absent: respiratory distress, wheezes, rales, rhonchi, stridor Cardiovascular Exam: Present: regular rate, normal rhythm, normal heart sounds. Absent: systolic murmur, diastolic murmur, rubs, gallop, clicks GI/Abdominal exam: Present: soft, normal bowel sounds. Absent: distended, tenderness, guarding, rebound, rigid Extremities exam: Present: normal inspection, full ROM, normal capillary refill. Absent: tenderness, pedal edema, joint swelling, calf tenderness Left Elbow exam: Present: full ROM. Absent: tenderness, swelling, laceration, deformity, dislocation Forearm Wrist exam: Present: normal inspection, full ROM, tenderness (anterior and posterior). Absent: swelling, laceration, ecchymosis, deformity, dislocation, erythema Hand Wrist exam: Present: normal inspection, full ROM, tenderness (medial palm). Absent: swelling, laceration, ecchymosis, deformity, dislocation, erythema Neuro motor exam: Present: wrist extension intact, thumb opposition intact, thumb IP flexion intact, thumb adduction intact, fingers 2-5 abduction intact Neurosensory exam: Present: radial nerve intact, ulnar nerve intact, median nerve intact Vascular: Present: normal capillary refill, radial pulse, ulnar pulse. Absent: vascular compromise, Pallo Neurological exam: Present: alert, oriented X3, CN II-XII intact Psychiatric exam: Present: normal affect, normal mood Skin exam: Present: warm, dry, intact, normal color. Absent: rash Course Vital Signs 10/11/21 07:26 Temperature 97.8 F Pulse Rate 83 Respiratory 18 Rate Blood Pressure 132/89 O2 Sat by Pulse 98 Oximetry Procedures - Orthopedic Splinting/Casting Injury #1 Side: left Upper Extremity Injury Location: short arm Upper Extremity Immobilizer: thumb spica Additional Comments: Neurovascular status intact after splint applied. Medical Decision Making - Medical Decision Making This is a 41-year-old female who presents with fall on left outstretched hand. Patient is resting comfortably in bed. Left forearm x-ray, left wrist x-ray, and left hand x-ray reveal no acute fracture dislocation. Patient splinted with thumb spica due to left anatomical snuffbox pain. Discussed results with the patient. Patient referred to orthopedic clinic further evaluation for possible concern for left scaphoid injury. Return parameters discussed. Disposition Clinical Impression: Left wrist pain Disposition: HOME SELF-CARE Condition: Good Instructions (If sedation given, give patient instructions): Wrist Injury (ED) Additional Instructions: Follow-up with orthopedics by calling today for earliest appointment. You are referred today for concern for possible scaphoid fracture. Take Motrin or Tylenol for pain. Keep splint dry. Return to the emergency room for any worsening symptoms. Is patient prescribed a controlled substance at d/c from ED?: No Referrals: Manny Wallace MD [Primary Care Provider] - 1-2 days Gómez Reza DO [Doctor of Osteopathic Medicine] - 1-2 days Time of Disposition: 08:46
--- NOTE | 2021-10-11 08:12 | XR ---
EXAMINATION TYPE: XR hand complete LT, XR wrist complete LT, XR forearm LT DATE OF EXAM: 10/11/2021 CLINICAL HISTORY: pain TECHNIQUE: Frontal, lateral and oblique images of the left hand are obtained. COMPARISON: None. FINDINGS: There is no acute fracture/dislocation evident. The joint spaces appear within normal limi ts. The overlying soft tissue appears unremarkable. IMPRESSION: There is no acute fracture or dislocation. ICD 10 NO FRACTURE, INITIAL EVALUATION EXAMINATION TYPE: XR hand complete LT, XR wrist complete LT, XR forearm LT DATE OF EXAM: 10/11/2021 CLINICAL HISTORY: pain TECHNIQUE: Frontal, lateral and oblique images of the left wrist are obtained. COMPARISON: None. FINDINGS: There is no acute fracture/dislocation evident. The joint spaces appear within normal rocha its. The overlying soft tissue appears unremarkable. IMPRESSION: There is no acute fracture or dislocation seen. ICD 10 NO FRACTURE, INITIAL EVALUATION EXAMINATION TYPE: XR hand complete LT, XR wrist complete LT, XR forearm LT DATE OF EXAM: 10/11/2021 CLINICAL HISTORY: pain TECHNIQUE: Frontal and lateral images of the left forearm are obtained. COMPARISON: None. FINDINGS: There is no acute fracture/dislocation evident. The joint spaces appear within normal limi ts. The overlying soft tissue appears unremarkable.
== END 2021-10-11 09:15 | disposition home or self-care (01) ==
LOC: EC 07:24
DX: M25.532 Pain in left wrist (principal); M79.642 Pain in left hand; M79.632 Pain in left forearm; E11.9 Type 2 diabetes mellitus without complications; G40.909 Epilepsy, unspecified, not intractable, without status epilepticus; F32.A Depression, unspecified; F41.9 Anxiety disorder, unspecified; F17.200 Nicotine dependence, unspecified, uncomplicated; Z79.51 Long term (current) use of inhaled steroids; Z79.1 Long term (current) use of non-steroidal anti-inflammatories (NSAID); W10.9XXA Fall (on) (from) unspecified stairs and steps, initial encounter; Y93.01 Activity, walking, marching and hiking
CPT/HCPCS: 29125; 99284

== ENCOUNTER 2023-03-22 17:33 | Observation (INO) | payer OTHER ==
[2023-03-22 18:55] LABS: HCT 40.4 % (34.0-46.0); HGB 14.5 gm/dL (11.4-16.0); Hyperchromasia Slight; MCV 83.3 fL (80.0-100.0); Mean Platelet Volume 8.5; Platelet Count 393 k/uL (150-450); RBC 4.85 m/uL (3.80-5.40); RDW 13.8 % (11.5-15.5); WBC 11.9 k/uL (3.8-10.6)
[2023-03-22 19:13] LABS: ALT 28 U/L (4-34); AST 47 U/L (14-36); African American GFR (CKD) >90 (>60 ml/min/1.73 sqM); Albumin 4.1 g/dL (3.5-5.0); Alkaline Phosphatase 82 U/L (38-126); Anion Gap 14 mmol/L; Blood Urea Nitrogen 8 mg/dL (7-17); Calcium 9.3 mg/dL (8.4-10.2); Carbon Dioxide 14 mmol/L (22-30); Chloride 113 mmol/L (98-107); Glucose 146 mg/dL (74-99); Non-African American GFR(CKD) >90 (>60 ml/min/1.73 sqM); Sodium 141 mmol/L (137-145); Total Bilirubin 0.7 mg/dL (0.2-1.3); Total Protein 7.1 g/dL (6.3-8.2)
[2023-03-22 19:19] LABS: Potassium 2.5 mmol/L (3.5-5.1)
[2023-03-22 19:22] LABS: Partial Thromboplastin Time 23.1 sec (22.0-30.0); Prothrombin Time 10.2 sec (9.0-12.0)
[2023-03-22] MEDS ORDERED: POTASSIUM CHLORIDE 20 MEQ in WATER FOR INJECTION 1 100ML.BAG IVPB STA (19:41)
[2023-03-22] MEDS ORDERED: SODIUM CHLORIDE 0.9% 1,000 ML IV STA (19:41)
[2023-03-22] MEDS ORDERED: ONDANSETRON 4 MG/2 ML VIAL IVP PRN (19:43)
[2023-03-22] MEDS ORDERED: LORazepam 2 MG/ML INJ IV PRN (19:43)
[2023-03-22] MEDS ORDERED: ONDANSETRON 4 MG/2 ML VIAL IVP STA (19:43)
[2023-03-22] MEDS ORDERED: LORazepam 2 MG/ML INJ IV STA (19:43)
[2023-03-22] MEDS ORDERED: NALOXONE 0.4 MG/ML 1 ML VIAL IV PRN (19:47)
--- NOTE | 2023-03-22 19:47 | ED ---
Chest Pain HPI - General Chief Complaint: Chest Pain Stated Complaint: Chest Pain/Face/Legs numb Time Seen by Provider: 03/22/23 19:27 Source: patient, RN notes reviewed, old records reviewed Mode of arrival: ambulatory Limitations: no limitations - History of Present Illness Initial Comments: This is a 42-year-old female DF for evaluation patient presents with severe anxiety. Having recurrent anxiety and panic attack with hyperventilation. Patient states she does not feel well has not been going well for the 80s with nausea no current active vomiting. Patient states she cannot move her hands, it is also having chest pain. MD Complaint: chest pain -: days(s) Onset: during rest Pain Location: substernal Pain Radiation: none Severity: moderate Severity scale (1-10): 4 Quality: tightness Consistency: constant Improves With: nothing Worsens With: nothing Anginal Symptoms: sense of impending doom Other Symptoms: palpitations Treatments Prior to Arrival: none - Related Data Home Medications Medication Instructions Recorded Confirmed Ibuprofen [Motrin] 800 mg PO BID PRN 07/27/21 03/22/23 Albuterol Sulfate [Proair Hfa] 2 puff INHALATION RT-QID PRN 10/11/21 03/22/23 Fluticasone Propion/Salmeterol 1 puff INHALATION RT-BID 03/22/23 03/22/23 [Advair 250-50 Diskus] LORazepam [Ativan] 0.5 mg PO DAILY PRN 03/22/23 03/22/23 PARoxetine [Paxil] 20 mg PO DAILY 03/22/23 03/22/23 Allergies Allergy/AdvReac Type Severity Reaction Status Date / Time aspirin Allergy Rash/Hives Verified 03/22/23 18:14 Mushroom AdvReac Anaphylaxis Verified 03/22/23 18:14 Review of Systems ROS Statement: Those systems with pertinent positive or pertinent negative responses have been documented in the HPI. ROS Other: All systems not noted in ROS Statement are negative. Past Medical History Past Medical History: Cancer, Diabetes Mellitus, Seizure Disorder Additional Past Medical History / Comment(s): uterine CA seizures 1week ago History of Any Multi-Drug Resistant Organisms: MRSA Date of last positivie culture/infection: 07/27/21 MDRO Source:: MRSA BLOOD Past Surgical History: Hysterectomy Additional Past Surgical History / Comment(s): Laser surgery for vaginal cancer 2012 Past Anesthesia/Blood Transfusion Reactions: No Reported Reaction Past Psychological History: Anxiety, Depression Smoking Status: Current every day smoker Past Alcohol Use History: None Reported Past Drug Use History: None Reported - Past Family History Mother Additional Family Medical History / Comment(s): uterine CA, Father Family Medical History: Diabetes Mellitus Additional Family Medical History / Comment(s): heart disease General Exam Limitations: no limitations General appearance: alert, in no apparent distress, anxious Head exam: Present: atraumatic, normocephalic, normal inspection Eye exam: Present: normal appearance, PERRL, EOMI. Absent: scleral icterus, conjunctival injection, periorbital swelling ENT exam: Present: normal exam, mucous membranes moist Neck exam: Present: normal inspection. Absent: tenderness, meningismus, lymphadenopathy Respiratory exam: Present: normal lung sounds bilaterally. Absent: respiratory distress, wheezes, rales, rhonchi, stridor Cardiovascular Exam: Present: regular rate, normal rhythm, normal heart sounds. Absent: systolic murmur, diastolic murmur, rubs, gallop, clicks GI/Abdominal exam: Present: soft, normal bowel sounds. Absent: distended, tenderness, guarding, rebound, rigid Extremities exam: Present: normal inspection, full ROM, normal capillary refill. Absent: tenderness, pedal edema, joint swelling, calf tenderness Back exam: Present: normal inspection Neurological exam: Present: alert, oriented X3, CN II-XII intact Psychiatric exam: Present: normal affect, normal mood Skin exam: Present: warm, dry, intact, normal color. Absent: rash Course Vital Signs 03/22/23 03/22/23 03/22/23 18:10 20:45 22:40 Temperature 98.6 F 98.6 F 98.1 F Pulse Rate 85 87 81 Respiratory 22 17 16 Rate Blood Pressure 122/82 95/65 110/74 O2 Sat by Pulse 100 99 98 Oximetry - Reevaluation(s) Reevaluation #1: 03/22/23 19:46 Medical records reviewed Reevaluation #2: 03/22/23 19:46 Patient symptoms are mildly improving here in the ER Reevaluation #3: 03/22/23 19:46 Patient informed results and questions answered Reevaluation #4: 03/22/23 19:46 Was pt. sent in by a medical professional or institution? @ -no Did you speak to anyone other than the patient for history? @ -no Did you review nursing and triage notes? @ -agree Were old charts reviewed? @ -yes Differential Diagnosis? @ -prior EKG interpreted by me (3pts min.)? @ -yes X-rays interpreted by me (1pt min.)? @ -yes CT interpreted by me (1pt min.)? @ -no U/S interpreted by me (1pt. min.)? @ -no What testing was considered but not performed? (CT, X-rays, U/S, labs)? Why? @ -no What meds were considered but not given? Why? @ -no Did you discuss the management of the patient with other professionals? @ -no Did you reconcile home meds? @ -no Was smoking cessation discussed for >3mins.? @ -no Was critical care preformed (if so, how long)? @ -no Were there social determinants of health that impacted care today? How? (Homelessness, low income, unemployed, alcoholism, drug addiction, transportation, low edu. Level, literacy, decrease access to med. care, retirement, rehab)? @ -no Was there de-escalation of care discussed even if they declined? (Discuss DNR or withdrawal of care, Hospice)? @ -no What co-morbidities impacted this encounter? (DM, HTN, Smoking, COPD, CAD, Cancer, CVA, Hep., AIDS, mental health diagnosis, sleep apnea, morbid obesity)? @ -none Was patient admitted / discharged? @ - Undiagnosed new problem with uncertain prognosis? @ -no Drug Therapy requiring intensive monitoring for toxicity (Heparin, Nitro, Insulin, Cardizem)? @ -no Were any procedures done? @ -no Diagnosis/symptom? @ - Acute, or Chronic, or Acute on Chronic? @ -acute Uncomplicated (without systemic symptoms) or Complicated (systemic symptoms)? @ -complicated Side effects of treatment? @ -no Exacerbation, Progression, or Severe Exacerbation] @ -no Poses a threat to life or bodily function? @ -yes Reevaluation #5: 03/22/23 19:46 Differential Chest Pain: Stable Angina, Unstable Angina, STEMI, NSTEMI Aortic Dissection, Pneumothorax, Musculoskeletal, Esophageal Spasm GERD, Cholecystitis, Pancreatitis, Zoster, this is not meant to be an all-inclusive list. - Consultations Consultation #1: Spoke with admitting physicians who agree to admit this patient Chest Pain MDM - MDM 42 female severe anxiety hyperventilation carpopedal spasm and chest pain found to have some significantly low potassium. Patient be admitted for potassium replacement Disposition Clinical Impression: Hypokalemia, Chest pain, Anxiety Disposition: ADMITTED IP TO THIS HOSP Condition: Fair Is patient prescribed a controlled substance at d/c from ED?: No Time of Disposition: 19:40
[2023-03-22 19:59] LABS: Eosinophils # (M) 0.48 k/uL (0-0.7); Lymphocytes # (M) 4.52 k/uL (1.0-4.8); Monocytes # (M) 0.71 k/uL (0-1.0); Neutrophils # (M) 6.19 k/uL (1.3-7.7); Neutrophils % (M) 52 %; Nucleated Red Blood Cells 0 /100 WBC (0-0); Total Cells Counted 100
[2023-03-22] MEDS ORDERED: POTASSIUM BICARBONATE/CIT AC 20 MEQ TABLET.EFF PO ONE ×2 (20:30→21:30)
[2023-03-22] MEDS: SODIUM CHLORIDE 0.9% 1,000 ML IV SCH (20:35)
--- NOTE | 2023-03-23 01:11 | XR ---
EXAM: XR Chest, 1 View CLINICAL HISTORY: ITS.REASON XR Reason: cp TECHNIQUE: Frontal view of the chest. COMPARISON: No relevant prior studies available. FINDINGS: Lungs: Unremarkable. No consolidation. Pleural space: Unremarkable. No pneumothorax. Heart: Unremarkable. No cardiomegaly. Mediastinum: Unremarkable. Bones/joints: Unremarkable. IMPRESSION: Normal chest x-ray.
[2023-03-23] MEDS: SODIUM CHLORIDE 0.9% 1,000 ML IV SCH ×3 (02:48→18:26)
[2023-03-23 10:34] LABS: ALT 26 U/L (4-34); AST 43 U/L (14-36); African American GFR (CKD) >90 (>60 ml/min/1.73 sqM); Albumin 2.6 g/dL (3.5-5.0); Albumin/Globulin Ratio 1.1; Alkaline Phosphatase 52 U/L (38-126); Anion Gap 6 mmol/L; Blood Urea Nitrogen 4 mg/dL (7-17); Calcium 6.9 mg/dL (8.4-10.2); Carbon Dioxide 18 mmol/L (22-30); Chloride 117 mmol/L (98-107); Globulin 2.3 g/dL; Glucose 203 mg/dL (74-99); Non-African American GFR(CKD) >90 (>60 ml/min/1.73 sqM); Sodium 141 mmol/L (137-145); Total Bilirubin 0.4 mg/dL (0.2-1.3); Total Protein 4.9 g/dL (6.3-8.2)
[2023-03-23 10:55] LABS: Potassium 2.1 mmol/L (3.5-5.1)
[2023-03-23] MEDS ORDERED: POTASSIUM CHLORIDE 10 MEQ in WATER FOR INJECTION 1 100ML.BAG IVPB ONE (11:12)
[2023-03-23] MEDS: POTASSIUM BICARBONATE/CIT AC 20 MEQ TABLET.EFF PO SCH ×3 (11:39→21:12)
[2023-03-23] MEDS ORDERED: LORazepam 0.5 MG TAB PO PRN (12:45)
[2023-03-23] MEDS ORDERED: ALBUTEROL SULFATE INHALATION PRN (12:45)
[2023-03-23] MEDS: IBUPROFEN 800 MG TAB PO PRN (17:14)
[2023-03-23 18:38] LABS: Urine Alcohol Negative (Negative); Urine Barbiturate Negative (Negative); Urine Cocaine Negative (Negative); Urine Methadone Negative (Negative); Urine Opiates Negative (Negative); Urine Phencyclidine Negative (Negative)
[2023-03-23] MEDS: SYMBICORT 80-4.5 MCG INHALER INHALATION SCH (21:28)
[2023-03-24] MEDS: SODIUM CHLORIDE 0.9% 1,000 ML IV SCH ×2 (00:17→08:48)
[2023-03-24] MEDS: IBUPROFEN 800 MG TAB PO PRN (00:18)
[2023-03-24 02:37] VITALS: RESP 16
[2023-03-24 07:03] LABS: ALT 29 U/L (4-34); AST 46 U/L (14-36); African American GFR (CKD) >90 (>60 ml/min/1.73 sqM); Albumin 2.6 g/dL (3.5-5.0); Albumin/Globulin Ratio 1.2; Alkaline Phosphatase 49 U/L (38-126); Anion Gap 3 mmol/L; Blood Urea Nitrogen <2 mg/dL (7-17); Calcium 7.2 mg/dL (8.4-10.2); Carbon Dioxide 17 mmol/L (22-30); Chloride 120 mmol/L (98-107); Globulin 2.2 g/dL; Glucose 126 mg/dL (74-99); Non-African American GFR(CKD) >90 (>60 ml/min/1.73 sqM); Sodium 140 mmol/L (137-145); Total Bilirubin 0.3 mg/dL (0.2-1.3); Total Protein 4.8 g/dL (6.3-8.2)
[2023-03-24 07:08] LABS: Potassium 2.3 mmol/L (3.5-5.1)
[2023-03-24] MEDS ORDERED: Potassium Replacement Protocol 1 EACH MISC MISCELLANE PRN (07:56)
[2023-03-24] MEDS ORDERED: POTASSIUM CHLORIDE ER 20 MEQ TAB.ER PO ONE (07:56)
[2023-03-24] MEDS: SYMBICORT 80-4.5 MCG INHALER INHALATION SCH (08:41)
[2023-03-24] MEDS: POTASSIUM BICARBONATE/CIT AC 20 MEQ TABLET.EFF PO SCH ×2 (08:48→16:35)
[2023-03-24] MEDS ORDERED: PARoxetine 20 MG TAB PO SCH (09:00)
[2023-03-24 15:50] VITALS: BP 91/55; PULSE 74; TEMP 98
[2023-03-24] MEDS ORDERED: CALCIUM ACETATE 667 MG TAB PO SCH ×2 (17:30)
[2023-03-24] MEDS ORDERED: LOPERAMIDE 2 MG CAP PO SCH (18:00)
--- NOTE | 2023-03-24 22:54 | DS ---
DISCHARGE SUMMARY CHIEF COMPLAINT: Hyperventilation and hypokalemia. HISTORY OF PRESENT ILLNESS AND PHYSICAL EXAM: Details of this lady's history and physical can be found in the initial workup. LABORATORY STUDIES: When she was in the hospital, she had laboratory studies, details of which can be found in the laboratory section of her chart. COURSE IN THE HOSPITAL: After admission, she was placed on bedrest, started on intravenous fluids and potassium was administered. She continued to have some diarrhea and this was felt to be the etiology of her hypokalemia. It was felt she could be discharged on the and she will go home on potassium replacement and Imodium for diarrhea and be followed up in several days. FINAL DIAGNOSES: 1. Hypokalemia. 2. Hyperventilation. 3. Diarrhea. 4. Type 1 insulin-dependent diabetes mellitus. OPERATIONS: None. CONSULTATION: None. She is improved. MMFAITH / JEOVANNY: [id number] /
--- NOTE | 2023-03-24 23:30 | HP ---
HISTORY AND PHYSICAL CHIEF COMPLAINT: Chest pain, weakness, hyperventilation, and hypokalemia. HISTORY OF PRESENT ILLNESS: This is another admission for this 42-year-old white female with type 1 insulin- dependent diabetes mellitus, which she has kept under fairly good control. Before coming in, she started to have a lower leg pain in both calves and feet. She then began to notice numbness in the feet, fingers, face, and around the mouth. She came to the emergency room. She was slightly hypotensive at 96/60 and had a profound hypokalemia just over 2. She has been having some trouble with diarrhea. Blood sugars had good. She has had no other complaints. She has had no fever, chills, nausea, vomiting, chest pain, abdominal pain, melena, hematochezia, urinary complaints, etc. PAST MEDICAL HISTORY, FAMILY HISTORY AND SOCIAL HISTORY: Are all otherwise unremarkable or noncontributory. She does smoke. PHYSICAL EXAMINATION: VITAL SIGNS: Blood pressure is 96/60 with a pulse of 92, respirations of 40, and she is afebrile. GENERAL: She appeared to be in no acute distress. SKIN: Color is normal, skin is warm, dry. HEENT: Head, ears, eyes, nose, mouth and throat were normal. Mucous membranes are dry. NECK: Supple. CHEST: Clear. CARDIAC: Normal. ABDOMEN: Slightly protuberant. Abdomen is soft and nontender without visceromegaly or masses. Bowel sounds are present. EXTREMITIES: Normal. NEUROLOGIC: She is intact. DIAGNOSES: She is admitted to the hospital with diagnoses, 1. Hypokalemia. 2. Hyperventilation. 3. Diarrhea. 4. Type 1 insulin-dependent diabetes mellitus. PLAN: 1. Bed rest. 2. IV fluids. 3. Correct hypokalemia. 4. Uncontrolled diarrhea. MMODL / IJN: [id number] /
--- NOTE | 2023-03-24 23:30 | PN ---
PROGRESS NOTE DATE OF SERVICE: 03/23/2023 CHIEF COMPLAINT: Hyperventilation syndrome, hypokalemia. HISTORY OF PRESENT ILLNESS: This lady is doing better, but her potassium remains very low around 2.5 and is being corrected. PHYSICAL EXAMINATION: GENERAL: She is otherwise normal. NEUROLOGICAL: She is intact. CHEST: Clear. CARDIAC: Normal. IMPRESSION: 1. Hypokalemia. 2. Hyperventilation. 3. Diarrhea. PLAN: Continue efforts to restore potassium. MMODL / IJN: [id number] /
== END 2023-03-24 17:30 | disposition home or self-care (01) ==
LOC: EC 17:33 → 6NMEDSUR 19:47
PROVIDERS: ADMIT Family Medicine; ATTEND Family Medicine
DX: E87.6 Hypokalemia (principal); R19.7 Diarrhea, unspecified; F41.0 Panic disorder [episodic paroxysmal anxiety]; G40.909 Epilepsy, unspecified, not intractable, without status epilepticus; I95.9 Hypotension, unspecified; E10.9 Type 1 diabetes mellitus without complications; F17.200 Nicotine dependence, unspecified, uncomplicated; F41.9 Anxiety disorder, unspecified; F32.A Depression, unspecified; Z79.51 Long term (current) use of inhaled steroids; Z79.899 Other long term (current) drug therapy; Z88.6 Allergy status to analgesic agent; Z91.018 Allergy to other foods; Z86.14 Personal history of Methicillin resistant Staphylococcus aureus infection; Z85.42 Personal history of malignant neoplasm of other parts of uterus; Z90.710 Acquired absence of both cervix and uterus; Z85.44 Personal history of malignant neoplasm of other female genital organs; Z98.890 Other specified postprocedural states; Z80.49 Family history of malignant neoplasm of other genital organs; Z83.3 Family history of diabetes mellitus; Z82.49 Family history of ischemic heart disease and other diseases of the circulatory system
CPT/HCPCS: 96361 ×2; 96366; 96365; 96375; 99285; 36415; 94640 ×2; 93005; 80053 ×3; 83735; 84100; 84132; 84484 ×2; 85025; 85610; 85730; 80306; 71045; G0378 ×3; J2060; J3480 ×2; J2405

== ENCOUNTER 2024-05-09 11:47 | Day surgery (SDC) | payer OTHER ==
[2024-05-09] MEDS ORDERED: fentaNYL (PF) 50 MCG/ML 2 ML AMP ONE ×4 (14:16→15:33)
[2024-05-09] MEDS ORDERED: MIDAZOLAM 2 MG/2 ML VIAL ONE ×2 (14:16→15:30)
[2024-05-09] MEDS ORDERED: HEPARIN SODIUM 1,000 UN/ML (10ML VL) ONE ×2 (14:36)
[2024-05-09] MEDS ORDERED: HYDROmorphone 0.5 MG/0.5 ML SYRINGE ONE (16:00)
[2024-05-09] MEDS: IOPAMIDOL-370 100ML BTL INJ ONE (16:20)
[2024-05-09] MEDS ORDERED: CLOPIDOGREL 75 MG TAB ONE ×2 (16:42)
[2024-05-09] MEDS ORDERED: HYDROcodone/APAP 5-325MG 1 EACH TAB ONE ×2 (17:59)
--- NOTE | 2024-06-18 23:45 | IR ---
EXAMINATION TYPE: IR stent intravas non coronary DATE OF EXAM: 05/21/2024 2:29 PM COMPARISON: Pre Operative Images if available both CT/MRI or plain film CLINICAL INDICATION: Female, 44 years old with history of right brachial cephalic stent. 35.1min fluo ro, [id number]; TECHNIQUE: IR stent intravas non coronary, multiple fluoroscopic images provided for procedure. Total fluoroscopy time: 35.1 seconds Total submitted images to PACS: [id number] DAP: 36.4 mGym2 Gycm2 uGym2 cGycm2 or equivalent. FINDINGS: IMPRESSION: 1. Report was generated for administrative purposes only. 2. Please see the operative/procedural note for further details. [facility], , 06/18/2024 11:42 PM
== END 2024-05-09 20:20 | disposition home or self-care (01) ==
LOC: CATHCVL 11:47 → 6NMEDSUR 11:48 → UNDOADMOB 11:48 → UNDODISOB 14:45 → CATHCVL 16:23
PROVIDERS: ATTEND Surgery
DX: I70.8 Atherosclerosis of other arteries (principal); Z72.0 Tobacco use; Z79.02 Long term (current) use of antithrombotics/antiplatelets; Z79.899 Other long term (current) drug therapy; Z88.6 Allergy status to analgesic agent
CPT/HCPCS: 36225; 37236; C1769 ×3; C1894 ×4; C1725 ×2; C1887; C1884; C1876; C1760; J2250; J3010; J1644; J1170; Q9967

== ENCOUNTER → 2025-02-24 | Day surgery (SDC) | payer OTHER ==
[2025-02-20 08:38] VITALS: BMI 21.3
[~2025-02-24] MED LIST: HYDROcodone/APAP 5-325MG 1 EACH TAB PO STA; SODIUM CHLORIDE 0.9% 1,000 ML IV SCH
[2025-02-24] MEDS: IV FLUID CONTINUATION 1,000 ML IV ONE (06:30)
[2025-02-24 06:42] LABS: HCT 36.7 % (37.2-46.3); HGB 13.2 g/dL (12.0-15.0); MCH 29.2 pg (27.0-32.0); MCV 81.2 fL (80.0-97.0); Mean Platelet Volume 10.9 fL (9.5-12.2); Platelet Count 350 10*3/uL (140-440); RBC 4.52 10*6/uL (4.10-5.20); RDW 13.5 % (11.5-14.5); WBC 12.77 10*3/uL (4.50-10.00)
[2025-02-24 06:55] LABS: African American GFR (CKD) >90 (>60 ml/min/1.73 sqM); Anion Gap 13 mmol/L; Blood Urea Nitrogen 8 mg/dL (7-17); Calcium 9.7 mg/dL (8.4-10.2); Carbon Dioxide 15 mmol/L (22-30); Chloride 108 mmol/L (98-107); Glucose 95 mg/dL (74-99); Non-African American GFR(CKD) >90 (>60 ml/min/1.73 sqM); Sodium 136 mmol/L (137-145)
[2025-02-24 06:57] LABS: Potassium 4.5 mmol/L (3.5-5.1)
[2025-02-24 06:59] VITALS: TEMP 98
[2025-02-24] MEDS: MIDAZOLAM 2 MG/2 ML VIAL IVP ONE (07:36)
[2025-02-24] MEDS: LIDOCAINE 1% INJ 10MG/ML (20 ML MDV) SQ ONE (07:45)
[2025-02-24] MEDS: HEPARIN SODIUM 1,000 UN/ML (10ML VL) IVP ONE ×2 (07:57→08:36)
[2025-02-24] MEDS: IOPAMIDOL-370 100ML BTL INJ ONE (08:44)
[2025-02-24] MEDS: IOPAMIDOL-370 100ML BTL INTRATHECA ONE (08:44)
[2025-02-24] MEDS: IOPAMIDOL-370 200ML BTL INJ ONE (08:59)
[2025-02-24] MEDS: CLOPIDOGREL 75 MG TAB PO ONE (09:00)
--- NOTE | 2025-02-24 09:05 | P.OP ---
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% Procedure(s) Performed: Ultrasound-guided right common femoral artery access Arch angiogram with selective right upper extremity angiogram second-order Percutaneous transluminal balloon angioplasty of the brachiocephalic in-stent stenosis with a 6 x 40 mm EverCross balloon Percutaneous closure of the right common femoral artery access with Vascade Conscious sedation x 58 minutes Anesthesia: local Surgeon: Wellington Moise Estimated Blood Loss (ml): 5 Pathology: none sent Condition: stable Disposition: PACU Indications for Procedure: 44-year-old female with history of right upper extremity weakness, pain with history of right brachiocephalic stenosis and stenting presents to the hospital for elective arch angiogram and possible balloon angioplasty of the likely in- stent stenosis. She underwent upper extremity arterial Doppler in the office which demonstrated significant decrease in flow to the right upper extremity indicating in-stent stenosis. Operative Findings: 90% in-stent stenosis of the right brachiocephalic stent Bilateral common carotid arteries are patent without any significant stenosis or atherosclerotic disease Right subclavian, axillary, brachial, radial and ulnar arteries are patent without any significant atherosclerotic disease or stenosis Description of Procedure: After written and informed consent was obtained the patient and all risks benefits and complications were described the patient was brought to the Radiation Oncology Therapist and laid in a supine position. The area of the right groin was prepped and draped in the usual sterile fashion. Utilizing ultrasound the right common femoral artery was visualized and demonstrated patency with minimal calcification. Under ultrasound guidance the right common femoral artery was cannulated and utilizing Seldinger technique a 5-Thai sheath was placed. 035 Glidewire was then placed to the aortic arch followed by pigtail catheter. Utilizing the pigtail catheter and arch angiogram was obtained. Multiple views were then obtained of the brachiocephalic artery and stent. There was sig nificant stenosis within the stent roughly 90%. Pigtail catheter was then removed over a wire and a JR4 and Palmer catheter were utilized to cross the lesion into the right upper extremity subclavian artery. Selective angiogram was obtained of the upper extremity on the right demonstrating no significant stenosis or disease throughout. A Glidewire advantage was then placed followed by a 55 Thai Rabie sheath. A filter wire was then placed across the lesion into the common carotid artery to prevent any embolization and patient was heparinized prior. Due to the severe angle this was unable to be completed over the filter wire and the wire was removed and replaced with a stiffer Glidewire. Balloon angioplasty was then performed within the stent with a 6 x 40 mm balloon. Once completed final angiogram was obtained demonstrating significant improvement with 15% residual stenosis. All guidewires and catheters were then removed and hemostasis was achieved with Vascade closure device of the right after removal of the long sheath and placement of the short 6 Thai sheath. The patient tolerated procedure well had a palpable radial pulse at the conclusion of the procedure as well as no neurologic deficits. She was then sent to PACU for recovery. Plan - Discharge Summary Discharge Rx Participant: No New Discharge Prescriptions: No Action Atorvastatin [Lipitor] 40 mg PO DAILY levETIRAcetam [Keppra] 500 mg PO Q12HR Fluticasone Propion/Salmeterol [Wixela 250-50 Inhub] 1 puff INHALATION QAM Insulin Glargine (Lantus) [Lantus Vial] 45 unit SQ QAM Clopidogrel [Plavix] 75 mg PO DAILY Albuterol Sulfate [Proair Hfa] 2 puff INHALATION RT-QID PRN PRN Reason: Shortness Of Breath LORazepam [Ativan] 0.5 mg PO DAILY PRN PRN Reason: Anxiety HYDROcodone/APAP 5-325MG [Morven 5-325] 1 tab PO TID PRN PRN Reason: Pain Potassium Chloride [Klor-Con M20] 20 meq PO DIRECTED Insulin Aspart [NovoLOG] 0 units SQ TID-W/MEALS PRN PRN Reason: sliding scale Semaglutide [Ozempic] 0.25 mg SQ TH RX: Midodrine HCl 10 mg PO BID Discharge Medication List Albuterol Sulfate [Proair Hfa] 2 puff INHALATION RT-QID PRN 10/11/21 [History] LORazepam [Ativan] 0.5 mg PO DAILY PRN 03/22/23 [History] Atorvastatin [Lipitor] 40 mg PO DAILY 03/06/24 [History] Fluticasone Propion/Salmeterol [Wixela 250-50 Inhub] 1 puff INHALATION QAM 03/06/24 [History] HYDROcodone/APAP 5-325MG [Morven 5-325] 1 tab PO TID PRN 03/06/24 [History] Potassium Chloride [Klor-Con M20] 20 meq PO DIRECTED 03/06/24 [History] levETIRAcetam [Keppra] 500 mg PO Q12HR 03/06/24 [History] Clopidogrel [Plavix] 75 mg PO DAILY 01/29/25 [History] Insulin Aspart [NovoLOG] 0 units SQ TID-W/MEALS PRN 01/29/25 [History] Insulin Glargine (Lantus) [Lantus Vial] 45 unit SQ QAM 01/29/25 [History] RX: Midodrine HCl 10 mg PO BID 02/20/25 [History] Semaglutide [Ozempic] 0.25 mg SQ TH 02/20/25 [History] Follow up Appointment(s)/Referral(s): Wellington Moise DO [STAFF PHYSICIAN] - 2 Weeks Activity/Diet/Wound Care/Special Instructions: No heavy lifting for 1 week Discharge Disposition: HOME SELF-CARE
[2025-02-24 10:16] VITALS: RESP 14
[2025-02-24 11:14] VITALS: BP 88/55; PULSE 86
--- NOTE | 2025-02-25 10:03 | IR ---
EXAMINATION TYPE: IR area captain brachiocephalic DATE OF EXAM: 02/24/2025 9:10 AM COMPARISON: Pre Operative Images if available both CT/MRI or plain film CLINICAL INDICATION: Female, 44 years old with history of rT ARM PAIN; TECHNIQUE: IR area captain brachiocephalic, multiple fluoroscopic images provided for procedure. DAP: 14.2 Gycm2 FINDINGS: IMPRESSION: 1. Report was generated for administrative purposes only. 2. Please see the operative/procedural note for further details. [facility], , 02/25/2025 10:01 AM
== END | disposition home or self-care (01) ==
LOC: CATHCVL 05:33
PROVIDERS: ATTEND Surgery
DX: I70.8 Atherosclerosis of other arteries (principal); L23.1 Allergic contact dermatitis due to adhesives; Z88.6 Allergy status to analgesic agent; Z79.02 Long term (current) use of antithrombotics/antiplatelets; Z79.899 Other long term (current) drug therapy
CPT/HCPCS: 36222; 37246; 80048; 85027; C1769 ×4; C1894 ×3; C1725 ×2; C1887; C1884; C1760; J2250; J2003; J1644; Q9967 ×2

== ENCOUNTER 2025-04-16 21:02 | Emergency (ER) | payer OTHER ==
[2025-04-16 21:18] VITALS: TEMP 97.7
[2025-04-16 21:44] VITALS: RESP 14
--- NOTE | 2025-04-16 21:56 | ED ---
General Adult HPI - General Chief complaint: Recheck/Abnormal Lab/Rx Stated complaint: MRSA Time Seen by Provider: 04/16/25 21:33 Source: patient Mode of arrival: EMS Limitations: no limitations - History of Present Illness Initial comments: 44-year-old female presenting with chief complaint of a painful red and swollen andria to the right side of the chin. Symptoms started yesterday. Patient states that this feels similar to facial cellulitis she has had in the past which was due to MRSA. No known fever. No discharge or bleeding from the wound. States that it is extremely tender. Denies injury or trauma. Denies IV drug use. - Related Data Home Medications Medication Instructions Recorded Confirmed Albuterol Sulfate [Proair Hfa] 2 puff INHALATION RT-QID PRN 10/11/21 02/24/25 LORazepam [Ativan] 0.5 mg PO DAILY PRN 03/22/23 02/24/25 Atorvastatin [Lipitor] 40 mg PO DAILY 03/06/24 02/24/25 Fluticasone Propion/Salmeterol 1 puff INHALATION QAM 03/06/24 02/24/25 [Wixela 250-50 Inhub] HYDROcodone/APAP 5-325MG [Mikana 1 tab PO TID PRN 03/06/24 02/24/25 5-325] Potassium Chloride [Klor-Con M20] 20 meq PO DIRECTED 03/06/24 02/24/25 levETIRAcetam [Keppra] 500 mg PO Q12HR 03/06/24 02/24/25 Clopidogrel [Plavix] 75 mg PO DAILY 01/29/25 02/24/25 Insulin Aspart [NovoLOG] 0 units SQ TID-W/MEALS PRN 01/29/25 02/20/25 Insulin Glargine (Lantus) [Lantus 45 unit SQ QAM 01/29/25 02/20/25 Vial] Midodrine HCl 10 mg PO BID 02/20/25 02/24/25 Semaglutide [Ozempic] 0.25 mg SQ TH 02/20/25 02/20/25 Previous Rx's Medication Instructions Recorded Clindamycin [Cleocin] 450 mg PO TID 7 Days #63 cap 04/16/25 Allergies Allergy/AdvReac Type Severity Reaction Status Date / Time adhesive tape Allergy skin Verified 02/20/25 08:30 irritation aspirin Allergy Rash/Hives Verified 02/20/25 08:30 Mushroom AdvReac Anaphylaxis Verified 02/20/25 08:30 Review of Systems ROS Statement: Those systems with pertinent positive or pertinent negative responses have been documented in the HPI. ROS Other: All systems not noted in ROS Statement are negative. 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 continuous glucose monitor. History of Any Multi-Drug Resistant Organisms: MRSA Date of last positivie culture/infection: 07/27/21 MDRO Source:: MRSA BLOOD Past Surgical History: Section, Heart Catheterization, Hysterectomy Additional Past Surgical History / Comment(s): Laser surgery for vaginal cancer 2012. R brachiocephalic stent 05/09/24. Diagnostic heart cath at [facility] 2023. Past Anesthesia/Blood Transfusion Reactions: No Reported Reaction Additional Past Anesthesia/Blood Transfusion Reaction / Comment(s): no hx blood transfusion Past Psychological History: Anxiety Smoking Status: Current every day smoker - Past Family History Mother Additional Family Medical History / Comment(s): uterine CA Father Family Medical History: Diabetes Mellitus Additional Family Medical History / Comment(s): heart disease General Exam Limitations: no limitations General appearance: alert, in no apparent distress Head exam: Present: atraumatic, normocephalic Eye exam: Present: normal appearance, EOMI. Absent: periorbital swelling ENT exam: Present: normal oropharynx, mucous membranes moist Neck exam: Present: normal inspection. Absent: meningismus Respiratory exam: Absent: respiratory distress Cardiovascular Exam: Present: regular rate Neurological exam: Present: alert, oriented X3 Psychiatric exam: Present: normal affect, normal mood Skin exam: Present: erythema (There is an erythematous, tender, and swollen bump to the right side of the chin, not fluctuant) Course Vital Signs 04/16/25 04/16/25 21:15 21:42 Temperature 97.7 F 97.7 F Pulse Rate 86 85 Respiratory 16 14 Rate Blood Pressure 119/69 110/71 O2 Sat by Pulse 99 97 Oximetry Medical Decision Making - Medical Decision Making Was pt. sent in by a medical professional or institution (CALEB Pearson, [employer] PROFESSOR, urgent care, hospital, or long-term...) When possible be specific @ -No Did you speak to anyone other than the patient for history (EMS, parent, family, police, friend...)? What history was obtained from this source @ -No Did you review nursing and triage notes (agree or disagree)? Why? @ -I reviewed and agree with nursing and triage notes Were old charts reviewed (outside hosp., previous admission, EMS record, old EKG, old radiological studies, urgent care reports/EKG's, long-term records)? Report findings @ -No old charts were reviewed Differential Diagnosis (chest pain, altered mental status, abdominal pain women, abdominal pain men, vaginal bleeding, weakness, fever, dyspnea, syncope, headache, dizziness, GI bleed, back pain, seizure, CVA, palpatations, mental health, musculoskeletal)? @ -Differential includes cellulitis, abscess, allergic reaction, not an all- inclusive list EKG interpreted by me (3pts min.). @ -As above X-rays interpreted by me (1pt min.). @ -None done CT interpreted by me (1pt min.). @ -None done U/S interpreted by me (1pt. min.). @ -None done What testing was considered but not performed or refused? (CT, X-rays, U/S, labs)? Why? @ -None What meds were considered but not given or refused? Why? @ -None Did you discuss the management of the patient with other professionals (professionals i.e. CALEB Pearson, [employer] PROFESSOR, lab, RT, psych nurse, social work instructor, traffic sergeant, teacher, security public safety officer, senior case manager)? Give summary @ -No Was smoking cessation discussed for >3mins.? @ -No Was critical care preformed (if so, how long)? @ -No Were there social determinants of health that impacted care today? How? (Homelessness, low income, unemployed, alcoholism, drug addiction, transportation, low edu. Level, literacy, decrease access to med. care, fci, rehab)? @ -No Was there de-escalation of care discussed even if they declined (Discuss DNR or withdrawal of care, Hospice)? DNR status @ -No What co-morbidities impacted this encounter? (DM, HTN, Smoking, COPD, CAD, Cancer, CVA, ARF, Chemo, Hep., AIDS, mental health diagnosis, sleep apnea, morbid obesity)? @ -None Was patient admitted / discharged? Hospital course, mention meds given and route, prescriptions, significant lab abnormalities, going to OR and other pertinent info. @ -44-year-old female presenting with chief complaint of pain and swelling to the right side of the face. Started yesterday. States that she does have history of facial cellulitis due to MRSA. On examination there is a tender erythematous bump to the right side of the chin. No evidence of fluctuance or drainable abscess. Patient will be started on clindamycin. She is educated on today's findings and treatment plan. Follow-up with PCP. Report back to ER wit h any new or worsening symptoms. Discussed return parameters and answered all questions. Patient conveyed verbal understanding and agreed to the plan. I discussed this case in detail with my attending Dr. Vázquez Undiagnosed new problem with uncertain prognosis? @ -No Drug Therapy requiring intensive monitoring for toxicity (Heparin, Nitro, Insulin, Cardizem)? @ -No Were any procedures done? @ -No Diagnosis/symptom? @ -Facial cellulitis Acute, or Chronic, or Acute on Chronic? @ -Acute Uncomplicated (without systemic symptoms) or Complicated (systemic symptoms)? @ -Uncomplicated Side effects of treatment? @ -No Exacerbation, Progression, or Severe Exacerbation? @ -No Poses a threat to life or bodily function? How? (Chest pain, [place], PR, pneumonia, PE, COPD, DKA, ARF, appy, cholecystitis, CVA, Diverticulitis, Homicidal, Suicidal, threat to staff... and all critical care pts) @ -Unlikely at this time Disposition Clinical Impression: Facial cellulitis Disposition: HOME SELF-CARE Condition: Good Instructions (If sedation given, give patient instructions): Cellulitis (ED) Additional Instructions: Follow-up with PCP. Report back to ER with any new or worsening symptoms. Prescriptions: Clindamycin [Cleocin] 450 mg PO TID 7 Days #63 cap Is patient prescribed a controlled substance at d/c from ED?: No Referrals: Manny Wallace MD [Primary Care Provider] - 1-2 days Time of Disposition: 21:56
[2025-04-16] MEDS: CLINDAMYCIN 150 MG CAP PO STA (22:07)
[2025-04-16 22:13] VITALS: BP 102/63; PULSE 75
== END 2025-04-16 22:13 | disposition home or self-care (01) ==
LOC: EC 21:02
DX: L03.211 Cellulitis of face (principal); F17.200 Nicotine dependence, unspecified, uncomplicated; Z88.6 Allergy status to analgesic agent; Z91.09 Other allergy status, other than to drugs and biological substances; Z91.018 Allergy to other foods
CPT/HCPCS: 99283